=== PATIENT | female | born 1950 | race Caucasian/White ===

== ENCOUNTER 2019-09-12 16:59 | Emergency (ER) | payer MEDICARE, SELFPAY ==
[2019-09-12 17:12] VITALS: BP 160/71; PULSE 88; RESP 18; TEMP 38.3; O2SAT 96; BMI 31.0
--- NOTE | 2019-09-12 17:19 | W.ED.ABDPA2 ---
HPI - Abdominal Pain General: Chief Complaint: Abdominal Pain Stated Complaint: abd pain Time Seen by Provider: 09/12/19 17:19 History of Present Illness: HPI narrative: Patient is a 69-year-old female comes to the ED with abdominal pain. She has had this pain intermittently for a while now. In the last week the abdominal pain has been more constant and severe. She describes the location of the abdominal pain is in the right upper quadrant. She rates the pain about a 5 out of 10 currently, but whenever she eats or drinks anything it gets a lot more severe. She says she has had some diarrhea the past couple days, nausea and fever. Denies any vomiting. Associated Symptoms: Reports diarrhea, fever(s) and nausea; Denies chills, constipation, dysuria, hematochezia, hematuria and vomiting Review of Systems Const: Reports: fever(s); Denies: chills or fatigue Eyes: Denies: change in vision or eye discomfort ENMT: Denies: throat pain, odynophagia, nasal discharge or nasal congestion Card: Denies: chest pain, palpitations, edema, swelling of feet/ankles, dyspnea on exertion or orthopnea Resp: Denies: dyspnea, productive cough or non-productive cough GI: Reports: abdominal pain, nausea and diarrhea; Denies: vomiting, constipation or hematochezia : Denies: flank pain, dysuria or hematuria Musc: Denies: neck pain, back pain or extremity swelling Skin/Breast: Denies: rash or new lesions Neuro: Denies: headache(s), numbness in extremities or weakness in extremities PFS ED PFSH: Social History Smoking and tobacco status: never smoked Physical Exam Const: COMMON NORMALS: patient oriented x3 and alert GENERAL APPEARANCE: cooperative; not comfortable (Uncomfortable due to right upper quadrant pain.) HENMT: COMMON NORMALS: normocephalic HEAD & SCALP: normocephalic MOUTH: Normal oral and palatal mucosa present THROAT: posterior oropharynx normal and uvula midline Eye: COMMON NORMALS: Equal, round and reactive pupils present PUPIL: Yes Equal, round and reactive pupils present Neck/C-Spine: COMMON NORMALS: supple GENERAL: Yes normal visual inspection Resp: COMMON NORMALS: normal respiratory effort, No retractions, No use of accessory muscles and clear to auscultation bilaterally AUSCULTATION: clear to auscultation bilaterally Cardio: COMMON NORMALS: regular rate, regular rhythm, S1 normal heart sound present, S2 normal heart sound present, No gallops present (Cardio), No clicks present (Cardio), No murmurs present (Cardio) and Peripheral pulses 2+ throughout RATE: regular rate RHYTHM: regular rhythm HEART SOUNDS: S1 normal heart sound present and S2 normal heart sound present PERIPHERAL PULSES: Peripheral pulses 2+ throughout GI: COMMON NORMALS: Normal to inspection, nondistended, normoactive bowel sounds present, Soft to palpation and no masses AUSCULTATION: Yes normoactive bowel sounds PALPATION: Yes Soft to palpation and Yes Tenderness to palpation present (GI) Details: RUQ (Positive Arzate sign) : COMMON NORMALS: Yes no CVA tenderness BLADDER/KIDNEY EXAM: Yes no CVA tenderness Back/Pelvis: COMMON NORMALS: no CVA tenderness Extremity: COMMON NORMALS: normal to inspection and no pedal edema Neuro: COMMON NORMALS: patient oriented x3 SENSORIUM/ORIENTATION: Yes alert GAIT: Yes Normal gait present Skin: COMMON NORMALS: no rashes or lesions noted GENERAL SKIN EXAM: no rashes or lesions noted and dry skin Course Vital Signs: Vital signs: Vital Signs Temperature 100.9 F H 09/12/19 17:12 Pulse Rate 87 09/12/19 20:00 Respiratory Rate 17 09/12/19 20:00 Blood Pressure 154/79 09/12/19 20:00 Pulse Oximetry 96 09/12/19 20:00 MDM - Abdominal Pain MDM Narrative: Medical decision making narrative: Patient is a 69-year-old female comes to the ED with right upper quadrant pain. White blood cell 7.1. Ultrasound of the gallbladder showed Cholelithiasis without cholecystitis. No duct dilatation. Patient's pain and nausea was controlled here in the ED and she was feeling a lot better. Patient would like to discharge and go home and rest. I placed a referral to case management for patient to see general surgery. Patient was discharged with a prescription of Zofran and a written prescription of hydrocodone. Told her to advance her diet slowly and to start with clear liquids. She can return to the ED for reevaluation if she has any worsening symptoms. Patient understood and agreed with plan. Lab Data: Attestation: I reviewed the patient's lab results. Labs: Lab Results 09/12/19 09/12/19 09/12/19 Range/Units 17:32 17:32 18:30 WBC 7.1 (4.0-10.0) 10^3/ uL RBC 4.12 (4.1-5.3) 10^6/u L Hgb 11.3 L (11.5-15.3) g/dL Hct 36.9 L (37.0-47.0) % MCV 89.6 (81-99) fL MCH 27.4 L (28.0-34.0) pg MCHC 30.6 (30.0-36.0) g/dL RDW 13.2 (12.1-15.1) % Plt Count 303 (130-400) 10^3/c mm MPV 9.4 (7.4-10.4) fL Neut % (Auto) 78.6 % Lymph % (Auto) 9.9 % [place] % (Auto) 9.3 % Eos % (Auto) 1.4 % Baso % (Auto) 0.4 % Neut # (Auto) 5.6 (1.8-7.7) 10^3/u L Lymph # (Auto) 0.7 L (0.8-4.8) 10^3/u L [place] # (Auto) 0.7 (0.2-0.9) 10^3/u L Eos # (Auto) 0.1 (0.0-0.8) 10^3/u L Baso # (Auto) 0.0 (0.0-0.1) 10^3/u L Nucleated RBC % (a uto) 0 % Nucleated RBCs # 0.0 /100WBC Sodium 140 (136-145) mmol/L Potassium 4.3 (3.5-5.1) mmol/L Chloride 104 (98-107) mmol/L Carbon Dioxide 23 (22-29) mmol/L Anion Gap 17.3 (5-19) BUN 20 (8-23) mg/dL Creatinine 1.2 H (0.5-0.9) mg/dL GFR Calculation 44.5 L (90-130) mL/min Glucose 109 (65-115) mg/dL Calculated Osmolal ity 287 (285-295) mOsm/k g Calcium 9.1 (8.5-10.5) mg/dL Total Bilirubin 0.6 (0.15-1.2) mg/dL AST 20 (0-32) U/L ALT 14 (0-33) U/L Alkaline Phosphata se 132 H (35-105) IU/L Total Protein 8.0 (6.6-8.7) g/dL Albumin 3.3 L (3.5-5.2) g/dL Globulin 4.7 H (1.3-4.6) g/dL Lipase 50 (13-60) U/L Urine Color Yellow (Yellow) Urine Appearance Sl hazy (CLEAR) Urine pH 5 (5-7) Ur Specific Gravit y 1.015 (1.005-1.030) Urine Protein Neg (Negative) Urine Glucose (UA) Norm (Normal) Urine Ketones Negative (Negative) Urine Blood Neg (Negative) Urine Nitrate Negative (Negative) Urine Bilirubin Neg (NEGATIVE) Urine Urobilinogen 1 H (Negative) mg/dL Ur Leukocyte Chika ase Negative (Negative) Urine RBC None (0-2) /hpf Urine WBC 15-25 H (0-5) /hpf Ur Squamous Epith Cells 0-4 H (0-5) Urine Bacteria 4+ H (NONE) Urine Mucus 1+ Imaging Data ^: US: Attestation: I personally reviewed and interpreted this imaging study as follows: Radiologist's impression: [address] [address] Ultrasound Report Signed Patient: Erin Rodriguez Unit #: [id number] : [id number] Age/Sex: 69 / F ADM Date: 09/12/19 Loc: ER Room/Bed: Attending Dr: Ordering Provider/Ordering MD: Rey Sandoval Date of Service: 09/12/19 Procedure(s): US gall bladder 35056 Accession Number(s): [id number] Report Number: [id number] PROCEDURE INFORMATION: Exam: US Abdomen Limited, Right Upper Quadrant Exam date and time: 09/12/2019 5:22 PM Age: 69 years old Clinical indication: Abdominal pain; Additional info: Ruq abdominal pain TECHNIQUE: Imaging protocol: Real-time ultrasound of the abdomen with image documentation. Examination was focused on the right upper quadrant. COMPARISON: No relevant prior studies available. FINDINGS: Liver: The liver is mildly echogenic with attenuation of the ultrasound beam compatible with fatty infiltration. The liver measures 16.6 cm in length. Gallbladder: The gallbladder is distended. There is stones in the gallbladder. The gallbladder wall thickness is at the upper limits of normal at 2.9 mm. There is a positive sonographic Arzate's sign. There is no pericholecystic fluid. Note is made that there is a prominent vessel adjacent to the gallbladder. Common bile duct: The common bile duct is within normal limits at 3.5 mm. Pancreas: The visualized pancreas is unremarkable. Adrenals: There is an indeterminate nodule separate from but superior to the right kidney measuring 3.0 x 4.3 x 3.7 cm. This nodule has a hypoechoic rim and echogenic center which is typically identified with loops of bowel however it has a rounded appearance and cannot be connected with other loops of bowel on this exam. Specifically, this may be a loop of bowel or an incidental right adrenal nodule. Right kidney: The right kidney is unremarkable. There are no stones or hydronephrosis. The echotexture of the kidney is unremarkable. The kidney measures 11 cm in length. US/US gall bladder [id number] IMPRESSION: 1. Cholelithiasis without cholecystitis. No duct dilatation. 2. There is an indeterminate heterogeneous echogenicity nodule separate from but superior to the right kidney. This may be a loop of bowel or an incidental right adrenal nodule. CT scan may be helpful for further evaluation. Dictated By: Blank Terrell Signed By: Blank Terrell Signed Date/Time: 09/12/191824 DD/ 22 Discharge Plan Discharge Patient Disposition: Home, Self-Care Clinical Impression: Cholecystitis, Biliary colic Condition: Stable Prescriptions: New Zofran 4 mg tablet 4 mg PO DAILY Qty: 20 RF: 0 No Action trazodone 50 mg tablet 50 mg PO DAILY RF: 0 ropinirole 0.5 mg tablet 0.5 mg PO TID RF: 0 tramadol 50 mg tablet 50 mg PO BID PRN (Reason: paim) RF: 0 paroxetine HCl 20 mg tablet 20 mg PO DAILY RF: 0 atenolol 25 mg tablet 50 mg PO BID RF: 0 Discharge Orders: Discharge Order (Routine); Ordered 09/12/19 Ordered By: Rey Sandoval Referrals: Regino Smith MD [Primary Care Provider] - Discharge Diet: Advance as tolerated Discharge Activity: Increase activity as tolerated Patient Instructions: Cholecystitis (ED), Biliary Colic (ED) Activity Restrictions/Additional Instructions: I placed a referral to general surgery for you. They should be contacting you in the next several days to set up an appointment. You can give [facility] general surgery a call on Friday as well to touch base with them. Take the Zofran as needed for any nausea. I am also giving you a written prescription for [place] which she can take as prescribed for pain. Start slow with your diet and only drink clear liquids at first and then advance as tolerated. You can always come back to the ED for reevaluation if symptoms worsen. Discharge Date/Time: 09/12/19 20:01 Coding Level of Care Code ED [facility] for [facility] Fwd Exam Comprehensive
[2019-09-12] MEDS: sodium chloride 0.9% 500 ML IV (17:40)
[2019-09-12] MEDS: ondansetron 2 mg/ML SDV 2 mL 4 MG IVP ×2 (17:40→19:53)
[2019-09-12 17:45] VITALS: RESP 18
[2019-09-12] MEDS: morphine 4 mg/mL SDV 1 mL IVP (17:45)
[2019-09-12 17:51] LABS: Basophils % 0.4 %; Eosinophils # 0.1 10^3/uL (0.0-0.8); Eosinophils % 1.4 %; Hematocrit 36.9 % (37.0-47.0); Hemoglobin 11.3 g/dL (11.5-15.3); Lymphocytes # 0.7 10^3/uL (0.8-4.8); Lymphocytes % 9.9 %; Mean Corpuscular HGB Conc 30.6 g/dL (30.0-36.0); Mean Corpuscular Hemoglobin 27.4 pg (28.0-34.0); Mean Corpuscular Volume 89.6 fL (81-99); Mean Platelet Volume 9.4 fL (7.4-10.4); Monocytes # 0.7 10^3/uL (0.2-0.9); Monocytes % 9.3 %; Neutrophils # 5.6 10^3/uL (1.8-7.7); Neutrophils % 78.6 %; Nucleated Red Blood Cells % 0 %; Platelet Count 303 10^3/cmm (130-400); Red Blood Count 4.12 10^6/uL (4.1-5.3); Red Cell Distribution Width 13.2 % (12.1-15.1); White Blood Count 7.1 10^3/uL (4.0-10.0)
[2019-09-12 18:08] LABS: Alanine Aminotransferase 14 U/L (0-33); Albumin Level 3.3 g/dL (3.5-5.2); Alkaline Phosphatase 132 IU/L (35-105); Anion Gap 17.3 (5-19); Aspartate Amino Transferase 20 U/L (0-32); Blood Urea Nitrogen 20 mg/dL (8-23); Calcium 9.1 mg/dL (8.5-10.5); Carbon Dioxide 23 mmol/L (22-29); Chloride 104 mmol/L (98-107); Globulin 4.7 g/dL (1.3-4.6); Glomerular Filtration Rate 44.5 mL/min (90-130); Glucose 109 mg/dL (65-115); Lipase 50 U/L (13-60); Osmolality Calculated 287 mOsm/kg (285-295); Potassium 4.3 mmol/L (3.5-5.1); Sodium 140 mmol/L (136-145); Total Bilirubin 0.6 mg/dL (0.15-1.2)
[2019-09-12 18:56] LABS: Bilirubin Urine Neg (NEGATIVE); Blood Urine Neg (Negative); Glucose Urine UA Norm (Normal); Ketones Urine Negative (Negative); Leukocyte Esterase Urine Negative (Negative); Nitrate Urine Negative (Negative); Protein Urine Neg (Negative); Specific Gravity, Urine 1.015 (1.005-1.030); Urine Color Yellow (Yellow); Urobilinogen Urine 1 mg/dL (Negative); pH Urine 5 (5-7)
[2019-09-12 18:57] LABS: Add Urine Microscopic? YES; Urine Appearance SL Hazy (CLEAR)
[2019-09-12 18:58] LABS: Bacteria Urine 4+; Mucus Urine 1+; Squamous Epithelial Cell Urine 0-4 (0-5); WBC Urine 15-25 /hpf (0-5)
[2019-09-12 19:00] LABS: Add Urine Culture? Yes
[2019-09-12 19:11] VITALS: BP 155/86; PULSE 81; RESP 18; O2SAT 94
[2019-09-12] MEDS: HYDROcodone-acetaminophen 7.5-325 mg Tablet 1 TAB PO (19:52)
[2019-09-12 20:00] VITALS: BP 154/79; PULSE 87; RESP 17; O2SAT 96
--- NOTE | 2019-09-13 14:55 | DCPLANNER ---
thoroughbred horse farm manager had message to schedule a follow up appointment for patient with general surgery. thoroughbred horse farm manager called the [facility], spoke with Mery, gave clinic patients information. thoroughbred horse farm manager was told that patients information would be printed and reviewed. Clinic will call patient with appointment information.
--- NOTE | 2019-09-16 13:46 | DCPLANNER ---
Patient has a follow up appointment scheduled for , September 23, [address] at 9:[address] Mchugh. Clinic will call patient with appointment information.
--- NOTE | 2019-09-23 11:23 | DCPLANNER ---
Appointment scheduled for 09.23.19 with [facility] was cancelled.
== END 2019-09-12 20:01 | disposition home or self-care (01) ==
PROVIDERS: Emergency Provider Physician Assistant; PCP Family Medicine
DX: K81.9 Cholecystitis, unspecified (principal)
CPT/HCPCS: 12345; 76705; 80053; 81000; 81001; 83690; 85025; 87040; 87077; 87086; 87186; 96361; 96374; 96375; 96376; 99283; J2270; J2405; J7040

== ENCOUNTER 2019-09-17 13:30 | Inpatient (IN) | payer MEDICARE, SELFPAY ==
[2019-09-17] VITALS (12 sets, daily range): BP systolic 108–134; BP diastolic 50–82; PULSE 88–111; RESP 14–23; TEMP 36.9–37.6; O2SAT 88–98; BMI 32.5
--- NOTE | 2019-09-17 15:35 | USR_ITS ---
PROCEDURE INFORMATION: Exam: US Abdomen, Limited; Right Upper Quadrant Exam date and time: 09/17/2019 5:01 PM Age: 69 years old Clinical indication: Abdominal pain; Acute TECHNIQUE: Imaging protocol: US abdomen. Real time ultrasound with image documentation. Limited exam focused on the right upper quadrant. COMPARISON: US gall bladder [id number] 09/12/2019 5:35 PM FINDINGS: Liver: Normal. No masses. 15.6 cm Gallbladder: Multiple gallstones. There is no gallbladder wall thickening. Gallbladder measures 10.4 cm Common bile duct: Normal. No stones. No dilation. 8.2 mm Pancreas: Visualized pancreas is unremarkable. Right kidney: Normal. No mass. No hydronephrosis. 10.3 cm x 3 cm x 3.8 cm US/US gall bladder [id number] IMPRESSION: Dilated gallbladder with multiple gallstones Otherwise negative examination
--- NOTE | 2019-09-17 15:50 | W.ED.ABDPA2 ---
Documented by User: Betzaida Corrigan 09/17/19 15:58 HPI - Abdominal Pain General: Chief Complaint: Abdominal Pain Stated Complaint: abd pain Time Seen by Provider: 09/17/19 15:32 Source: patient and family Mode of arrival: ambulatory Limitations: no limitations History of Present Illness: HPI narrative: Erin is a nice 69-year-old female who comes in complaining of intermittent upper abdominal pain. The pain is always brought on by eating. She has significant nausea but has not vomited. The patient has had a subjective fever but is never measured her temperature. There are no urinary symptoms, vaginal discharge or bleeding. She has not had any chest pain or shortness of breath. Associated Symptoms: Reports nausea; Denies chills, coffee ground emesis, constipation, GI cramping, diarrhea, dysuria, fever(s), heartburn, hematochezia, hematuria, hematemesis, melena, syncope and vomiting Review of Systems Const: Denies: fever(s), chills, body aches, fatigue, malaise or diaphoresis Eyes: Denies: change in vision, blurry vision, blind spots, photophobia, eye discharge or eye redness ENMT: Denies: throat pain, odynophagia, hoarseness, swelling of lips/tongue, oral sores, ear or mastoid pain, ear discharge, change in hearing or nasal discharge Card: Denies: chest pain, palpitations, irregular heart rhythm, edema, lightheadedness, syncope, pre-syncope, dyspnea on exertion or orthopnea Resp: Denies: dyspnea, productive cough, non-productive cough, wheezing, hemoptysis or chest congestion GI: Reports: abdominal pain and nausea; Denies: vomiting, hematemesis, coffee ground emesis, heartburn, diarrhea, constipation, GI cramping, hematochezia or melena : Denies: flank pain, dysuria, urinary frequency, urinary urgency or hematuria Musc: Denies: neck pain, back pain, extremity pain, extremity swelling, joint pain, joint swelling, joint redness, joint warmth or joint stiffness Skin/Breast: Denies: rash, pruritus, erythema, skin tenderness or jaundice Neuro: Denies: headache(s), numbness in extremities, weakness in extremities, sensory changes, lack of coordination, difficulty walking, dizziness, vertigo, confusion, Slurred speech present or seizure-like activity Júnior/Lymph: Denies: easy bruising, easy bleeding, petechiae, purpura or enlarged lymph nodes All/Imm: Denies: urticaria, throat swelling, tongue swelling, facial swelling or acute wheezing PFSH ED PFSH: Medical History (Updated 09/17/19 @ 22:34 by Olivia Solorio MD, [facility] Depression Hypertension Social History Smoking and tobacco status: never smoked Physical Exam Const: COMMON NORMALS: no acute distress, patient oriented x3, no limitations, healthy appearing and well nourished GENERAL APPEARANCE: cooperative, well kempt and well developed HENMT: COMMON NORMALS: normocephalic, atraumatic, external ears normal, EAC's normal and Normal external nose present HEAD & SCALP: normal to inspection, normocephalic and atraumatic FACE & SINUS: normal facial exam and face symmetric NOSE: Normal external nose present and Normal nares present EXTERNAL EAR: Yes external ears normal EXTERNAL AUDITORY CANAL: EAC's normal MOUTH: Normal oral and palatal mucosa present, lip normal and tongue normal Eye: COMMON NORMALS: Equal, round and reactive pupils present and conjunctivae normal GENERAL EYE: appearance normal, both eyes and all related structures ALIGNMENT: Yes alignment normal PERIORBITAL: periorbital findings normal EYELID: eyelids normal CONJUNCTIVA: Yes conjunctivae normal SCLERA: sclerae normal PUPIL: Yes Equal, round and reactive pupils present Neck/C-Spine: COMMON NORMALS: full ROM, no lymphadenopathy, supple, no meningeal signs and no JVD GENERAL: Yes normal visual inspection and Yes trachea midline Chest: COMMONS NORMALS: normal inspection of the chest and normal palpation of entire chest wall Resp: COMMON NORMALS: normal respiratory effort, No retractions and No use of accessory muscles EFFORT & INSPECTION: Yes able to speak in complete sentences and Yes symmetric chest movement AUSCULTATION: no crackles, no rales, no rhonchi and no wheezes Cardio: COMMON NORMALS: no JVD, regular rate, regular rhythm, S1 normal heart sound present and S2 normal heart sound present RATE: regular rate RHYTHM: regular rhythm HEART SOUNDS: S1 normal heart sound present, S2 normal heart sound present, no click, no gallops, no murmurs, no rubs and abnormal split S2 GI: COMMON NORMALS: Soft to palpation and No hepatosplenomegaly present PALPATION: Yes Soft to palpation, Yes Tenderness to palpation present (GI) (Moderate in bilateral upper quadrants.), No Guarding due to palpation present (GI), No Rigid due to palpation, Yes No hepatosplenomegaly present, No Hernia present, No Palpable mass present and No Pulsatile mass present : COMMON NORMALS: Yes no CVA tenderness BLADDER/KIDNEY EXAM: Yes no CVA tenderness EXTERNAL FEMALE EXAM: No Hernia present Back/Pelvis: COMMON NORMALS: no CVA tenderness, thoracic and lumbar spine normal to inspection, no thoracic nor lumbar tenderness and thoraco-lumbar ROM normal Extremity: COMMON NORMALS: normal to inspection, full ROM, capillary refill normal, no joint enlargement, no clubbing, cyanosis or edema and no calf tenderness Neuro: COMMON NORMALS: patient oriented x3, CN's II-XII intact bilaterally, moves all extremities, no focal motor deficits and no sensory deficits noted MENINGEAL SIGNS: Yes no meningeal signs SPEECH: speech normal Psych: COMMON NORMALS: mental status grossly normal, Normal thought process present, cooperative, normal affect, speech normal and activity/motor behavior normal APPEARANCE: Yes well kempt SPEECH: Yes normal speech THOUGHT PROCESS: Normal thought process present Skin: COMMON NORMALS: no rashes or lesions noted, turgor normal, no jaundice, no petechiae and no mottling GENERAL SKIN EXAM: no rashes or lesions noted and turgor normal Course Vital Signs: Vital signs: Vital Signs Temperature 99.1 F 09/17/19 20:00 Pulse Rate 104 H 09/17/19 22:02 Respiratory Rate 21 H 09/17/19 20:27 Blood Pressure 108/50 09/17/19 20:27 Pulse Oximetry 88 L 09/17/19 22:02 MDM - Abdominal Pain Lab Data: Labs: Lab Results 09/17/19 09/17/19 09/17/19 Range/Units 16:14 16:14 16:14 WBC 15.2 H (4.0-10.0) 10^3/ uL RBC 4.19 (4.1-5.3) 10^6/u L Hgb 11.5 (11.5-15.3) g/dL Hct 37.8 (37.0-47.0) % MCV 90.2 (81-99) fL MCH 27.4 L (28.0-34.0) pg MCHC 30.4 (30.0-36.0) g/dL RDW 13.4 (12.1-15.1) % Plt Count 410 H (130-400) 10^3/c mm MPV 9.3 (7.4-10.4) fL Neut % (Auto) 90.8 % Lymph % (Auto) 3.1 % [place] % (Auto) 5.2 % Eos % (Auto) 0.1 % Baso % (Auto) 0.3 % Neut # (Auto) 13.8 H (1.8-7.7) 10^3/u L Lymph # (Auto) 0.5 L (0.8-4.8) 10^3/u L [place] # (Auto) 0.8 (0.2-0.9) 10^3/u L Eos # (Auto) 0.0 (0.0-0.8) 10^3/u L Baso # (Auto) 0.0 (0.0-0.1) 10^3/u L Nucleated RBC % (a uto) 0 % Nucleated RBCs # 0.0 /100WBC Sodium 135 L (136-145) mmol/L Potassium 3.8 (3.5-5.1) mmol/L Chloride 96 L (98-107) mmol/L Carbon Dioxide 19 L (22-29) mmol/L Anion Gap 23.8 H (5-19) BUN 23 (8-23) mg/dL Creatinine 0.2 L (0.5-0.9) mg/dL GFR Calculation 352.2 H (90-130) mL/min Glucose 116 H (65-115) mg/dL Calculated Osmolal ity 278 L (285-295) mOsm/k g Lactic Acid 1.7 (0.5-2.2) mmol/L Calcium 9.5 (8.5-10.5) mg/dL Total Bilirubin 0.2 (0.15-1.2) mg/dL AST 5 (0-32) U/L ALT < 5 (0-33) U/L Alkaline Phosphata se 5 L (35-105) IU/L Troponin T Baselin e (0-10) ng/L Troponin T 120 Min [place] band (0-10) ng/L Delta Troponin T (0-10) ABS# Total Protein 0.2 L (6.6-8.7) g/dL Albumin 0.2 L (3.5-5.2) g/dL Globulin 0.0 L (1.3-4.6) g/dL Lipase 3 L (13-60) U/L Urine Color (Yellow) Urine Appearance (CLEAR) Urine pH (5-7) Ur Specific Gravit y (1.005-1.030) Urine Protein (Negative) Urine Glucose (UA) (Normal) Urine Ketones (Negative) Urine Blood (Negative) Urine Nitrate (Negative) Urine Bilirubin (NEGATIVE) Urine Urobilinogen (Negative) mg/dL Ur Leukocyte Chika ase (Negative) Urine RBC (0-2) /hpf Urine WBC (0-5) /hpf Ur Squamous Epith Cells (0-5) Amorphous Sediment Urine Bacteria (NONE) 09/17/19 09/17/19 09/17/19 Range/Units 16:14 18:18 18:19 WBC (4.0-10.0) 10^3/ uL RBC (4.1-5.3) 10^6/u L Hgb (11.5-15.3) g/dL Hct (37.0-47.0) % MCV (81-99) fL MCH (28.0-34.0) pg MCHC (30.0-36.0) g/dL RDW (12.1-15.1) % Plt Count (130-400) 10^3/c mm MPV (7.4-10.4) fL Neut % (Auto) % Lymph % (Auto) % [place] % (Auto) % Eos % (Auto) % Baso % (Auto) % Neut # (Auto) (1.8-7.7) 10^3/u L Lymph # (Auto) (0.8-4.8) 10^3/u L [place] # (Auto) (0.2-0.9) 10^3/u L Eos # (Auto) (0.0-0.8) 10^3/u L Baso # (Auto) (0.0-0.1) 10^3/u L Nucleated RBC % (a uto) % Nucleated RBCs # /100WBC Sodium (136-145) mmol/L Potassium (3.5-5.1) mmol/L Chloride (98-107) mmol/L Carbon Dioxide (22-29) mmol/L Anion Gap (5-19) BUN (8-23) mg/dL Creatinine (0.5-0.9) mg/dL GFR Calculation (90-130) mL/min Glucose (65-115) mg/dL Calculated Osmolal ity (285-295) mOsm/k g Lactic Acid (0.5-2.2) mmol/L Calcium (8.5-10.5) mg/dL Total Bilirubin (0.15-1.2) mg/dL AST (0-32) U/L ALT (0-33) U/L Alkaline Phosphata se (35-105) IU/L Troponin T Baselin e 11 H (0-10) ng/L Troponin T 120 Min [place] band 8.98 (0-10) ng/L Delta Troponin T -2.02 L (0-10) ABS# Total Protein (6.6-8.7) g/dL Albumin (3.5-5.2) g/dL Globulin (1.3-4.6) g/dL Lipase (13-60) U/L Urine Color Yellow (Yellow) Urine Appearance Sl cloudy A (CLEAR) Urine pH 5 (5-7) Ur Specific Gravit y 1.025 (1.005-1.030) Urine Protein 1+ H (Negative) Urine Glucose (UA) Norm (Normal) Urine Ketones Negative (Negative) Urine Blood Neg (Negative) Urine Nitrate Negative (Negative) Urine Bilirubin 1+ H (NEGATIVE) Urine Urobilinogen 8 H (Negative) mg/dL Ur Leukocyte Chika ase 2+ H (Negative) Urine RBC None (0-2) /hpf Urine WBC 55-80 H (0-5) /hpf Ur Squamous Epith Cells 5-10 H (0-5) Amorphous Sediment 2+ Urine Bacteria 3+ H (NONE) Discharge Plan Discharge Patient Disposition: Admitted As Inpatient Admit Provider: Sebastian Spencer Clinical Impression: Cholecystitis, Hypertension Condition: Stable Interventions: ED Discharge Assessment Last Done: 09/17/19 20:27 ED Charges Last Done: 09/17/19 20:30 Discharge Date/Time: 09/17/19 20:34 Sign Out Sign Out Data: Patient Sign Out occurred on 09/17/19 at 17:14. Patient's care was discussed, and care was transferred from to Olivia Solorio MD, [facility]. Coding Level of Care Code ED Informaticist for Chg Fwd Exam Comprehensive Documented by User: Olivia Solorio MD, MSM 09/17/19 22:34 HPI - Abdominal Pain General: Chief Complaint: Abdominal Pain Stated Complaint: abd pain Time Seen by Provider: 09/17/19 15:32 [facility] ED PFSH: Medical History (Updated 09/17/19 @ 22:34 by Olivia Solorio MD, [facility]) Depression Hypertension Social History Smoking and tobacco status: never smoked Course Reevaluation(s): Reevaluation #1: Discussed her lab and imaging findings with her. Symptoms consistent with acute cholecystitis. We will advise hospital admission and surgical removal of the gallbladder after evaluation by the surgeon. The patient and her daughter voiced understanding and they are in agreement with the plan. Consultations: Consultation #1: Dr. Spencer, surgeon. He kindly accepted patient to his service. Time: 18:40 Vital Signs: Vital signs: Vital Signs Temperature 99.1 F 09/17/19 20:00 Pulse Rate 104 H 09/17/19 22:02 Respiratory Rate 21 H 09/17/19 20:27 Blood Pressure 108/50 09/17/19 20:27 Pulse Oximetry 88 L 09/17/19 22:02 MDM - Abdominal Pain MDM Narrative: Medical decision making narrative: 69-year-old female patient who this is her second visit to the ED for the same upper abdominal pain. Evaluation in the ED is consistent with acute cholecystitis and she is admitted to the general surgeon for further evaluation. See Dr. Trejo's note for history and physical examination. Lab Data: Labs: Lab Results 09/17/19 09/17/19 09/17/19 Range/Units 16:14 16:14 16:14 WBC 15.2 H (4.0-10.0) 10^3/ uL RBC 4.19 (4.1-5.3) 10^6/u L Hgb 11.5 (11.5-15.3) g/dL Hct 37.8 (37.0-47.0) % MCV 90.2 (81-99) fL MCH 27.4 L (28.0-34.0) pg MCHC 30.4 (30.0-36.0) g/dL RDW 13.4 (12.1-15.1) % Plt Count 410 H (130-400) 10^3/c mm MPV 9.3 (7.4-10.4) fL Neut % (Auto) 90.8 % Lymph % (Auto) 3.1 % [place] % (Auto) 5.2 % Eos % (Auto) 0.1 % Baso % (Auto) 0.3 % Neut # (Auto) 13.8 H (1.8-7.7) 10^3/u L Lymph # (Auto) 0.5 L (0.8-4.8) 10^3/u L [place] # (Auto) 0.8 (0.2-0.9) 10^3/u L Eos # (Auto) 0.0 (0.0-0.8) 10^3/u L Baso # (Auto) 0.0 (0.0-0.1) 10^3/u L Nucleated RBC % (a uto) 0 % Nucleated RBCs # 0.0 /100WBC Sodium 135 L (136-145) mmol/L Potassium 3.8 (3.5-5.1) mmol/L Chloride 96 L (98-107) mmol/L Carbon Dioxide 19 L (22-29) mmol/L Anion Gap 23.8 H (5-19) BUN 23 (8-23) mg/dL Creatinine 0.2 L (0.5-0.9) mg/dL GFR Calculation 352.2 H (90-130) mL/min Glucose 116 H (65-115) mg/dL Calculated Osmolal ity 278 L (285-295) mOsm/k g Lactic Acid 1.7 (0.5-2.2) mmol/L Calcium 9.5 (8.5-10.5) mg/dL Total Bilirubin 0.2 (0.15-1.2) mg/dL AST 5 (0-32) U/L ALT < 5 (0-33) U/L Alkaline Phosphata se 5 L (35-105) IU/L Troponin T Baselin e (0-10) ng/L Troponin T 120 Min [place] band (0-10) ng/L Delta Troponin T (0-10) ABS# Total Protein 0.2 L (6.6-8.7) g/dL Albumin 0.2 L (3.5-5.2) g/dL Globulin 0.0 L (1.3-4.6) g/dL Lipase 3 L (13-60) U/L Urine Color (Yellow) Urine Appearance (CLEAR) Urine pH (5-7) Ur Specific Gravit y (1.005-1.030) Urine Protein (Negative) Urine Glucose (UA) (Normal) Urine Ketones (Negative) Urine Blood (Negative) Urine Nitrate (Negative) Urine Bilirubin (NEGATIVE) Urine Urobilinogen (Negative) mg/dL Ur Leukocyte Chika ase (Negative) Urine RBC (0-2) /hpf Urine WBC (0-5) /hpf Ur Squamous Epith Cells (0-5) Amorphous Sediment Urine Bacteria (NONE) 09/17/19 09/17/19 09/17/19 Range/Units 16:14 18:18 18:19 WBC (4.0-10.0) 10^3/ uL RBC (4.1-5.3) 10^6/u L Hgb (11.5-15.3) g/dL Hct (37.0-47.0) % MCV (81-99) fL MCH (28.0-34.0) pg MCHC (30.0-36.0) g/dL RDW (12.1-15.1) % Plt Count (130-400) 10^3/c mm MPV (7.4-10.4) fL Neut % (Auto) % Lymph % (Auto) % [place] % (Auto) % Eos % (Auto) % Baso % (Auto) % Neut # (Auto) (1.8-7.7) 10^3/u L Lymph # (Auto) (0.8-4.8) 10^3/u L [place] # (Auto) (0.2-0.9) 10^3/u L Eos # (Auto) (0.0-0.8) 10^3/u L Baso # (Auto) (0.0-0.1) 10^3/u L Nucleated RBC % (a uto) % Nucleated RBCs # /100WBC Sodium (136-145) mmol/L Potassium (3.5-5.1) mmol/L Chloride (98-107) mmol/L Carbon Dioxide (22-29) mmol/L Anion Gap (5-19) BUN (8-23) mg/dL Creatinine (0.5-0.9) mg/dL GFR Calculation (90-130) mL/min Glucose (65-115) mg/dL Calculated Osmolal ity (285-295) mOsm/k g Lactic Acid (0.5-2.2) mmol/L Calcium (8.5-10.5) mg/dL Total Bilirubin (0.15-1.2) mg/dL AST (0-32) U/L ALT (0-33) U/L Alkaline Phosphata se (35-105) IU/L Troponin T Baselin e 11 H (0-10) ng/L Troponin T 120 Min [place] band 8.98 (0-10) ng/L Delta Troponin T -2.02 L (0-10) ABS# Total Protein (6.6-8.7) g/dL Albumin (3.5-5.2) g/dL Globulin (1.3-4.6) g/dL Lipase (13-60) U/L Urine Color Yellow (Yellow) Urine Appearance Sl cloudy A (CLEAR) Urine pH 5 (5-7) Ur Specific Gravit y 1.025 (1.005-1.030) Urine Protein 1+ H (Negative) Urine Glucose (UA) Norm (Normal) Urine Ketones Negative (Negative) Urine Blood Neg (Negative) Urine Nitrate Negative (Negative) Urine Bilirubin 1+ H (NEGATIVE) Urine Urobilinogen 8 H (Negative) mg/dL Ur Leukocyte Chika ase 2+ H (Negative) Urine RBC None (0-2) /hpf Urine WBC 55-80 H (0-5) /hpf Ur Squamous Epith Cells 5-10 H (0-5) Amorphous Sediment 2+ Urine Bacteria 3+ H (NONE) Imaging Data ^: US: Radiologist's impression: [facility] [address] [place] [address] Ultrasound Report Signed Patient: Erin Rodriguez #: [id number] : 1950Acct#:[id number] Age/Sex: 69 / FADM Date: 09/17/19 Loc: ERRoom/Bed: Attending Dr: Ordering Provider/Ordering MD: Betzaida Corrigan DO Date of Service: 09/17/19 Procedure(s): US gall bladder [id number] Accession Number(s): [id number] Report Number: [id number] PROCEDURE INFORMATION: Exam: US Abdomen, Limited; Right Upper Quadrant Exam date and time: 09/17/2019 5:01 PM Age: 69 years old Clinical indication: Abdominal pain; Acute TECHNIQUE: Imaging protocol: US abdomen. Real time ultrasound with image documentation. Limited exam focused on the right upper quadrant. COMPARISON: US gall bladder [id number] 09/12/2019 5:35 PM FINDINGS: Liver: Normal. No masses. 15.6 cm Gallbladder: Multiple gallstones. There is no gallbladder wall thickening. Gallbladder measures 10.4 cm Common bile duct: Normal. No stones. No dilation. 8.2 mm Pancreas: Visualized pancreas is unremarkable. Right kidney: Normal. No mass. No hydronephrosis. 10.3 cm x 3 cm x 3.8 cm US/US gall bladder [id number] IMPRESSION: Dilated gallbladder with multiple gallstones Otherwise negative examination Dictated By:Melquiades Soto Signed By:Rachel Soto Date/Time:09/17/191723 DD/ 1722 CT Abd/Pel: Radiologist's impression: [facility] [address] [place] [address] CT Scan Report Signed Patient: Erin Rodriguez #: [id number] : 1950Acct#:[id number] Age/Sex: 69 / FADM Date: 09/17/19 Loc: ERRoom/Bed: Attending Dr: Ordering Provider/Ordering MD: Olivia Solorio MD, [facility] Date of Service: 09/17/19 Procedure(s): CT abdomen pelvis w con* [id number] Accession Number(s): [id number] Report Number: [id number] PROCEDURE INFORMATION: Exam: CT Abdomen And Pelvis With Contrast Exam date and time: 09/17/2019 6:36 PM Age: 69 years old Clinical indication: Abdominal pain; Localized; Right upper quadrant (ruq); Prior surgery; Surgery date: 6+ months; Surgery type: Hyst; Patient HX: C/O ruq pain w HX of gallstones TECHNIQUE: Imaging protocol: Computed tomography of the abdomen and pelvis with intravenous contrast. Axial, coronal and sagittal reformatted images were created and reviewed. Radiation optimization: All CT scans at this facility use at least one of these dose optimization techniques: automated exposure control; mA and/or kV adjustment per patient size (includes targeted exams where dose is matched to clinical indication); or iterative reconstruction. Contrast material: OMNI 300; Contrast volume: 95 ml; Contrast route: INTRAVENOUS (IV); COMPARISON: US gall bladder [id number] 09/17/2019 4:24 PM RADIATION DOSE METRICS: Total DLP (mGy-cm): 1314.06 FINDINGS: Lungs: Mild linear stranding and groundglass at the lung bases, likely due to atelectasis and/or scarring. Mediastinal space: Small hiatal hernia. Liver: Mild intra hepatic biliary ductal dilatation. Gallbladder and bile ducts: Cholelithiasis and mild gallbladder distention with prominent associated gallbladder wall thickening, mural irregularity and pericholecystic stranding. Trace loculated pericholecystic fluid. Pancreas: Unremarkable. Spleen: Unremarkable. Adrenals: 3.8 x 3.1 cm ovoid right adrenal mass containing macroscopic fat, compatible with a myelolipoma (no follow-up is indicated based on the imaging appearance). Kidneys and ureters: Subcentimeter low-density renal lesions bilaterally, measuring up to 6 mm, too small to characterize. No radiodense calculi. No hydronephrosis. Stomach and bowel: Colonic diverticulosis without evidence of diverticulitis. No obstruction. No bowel wall thickening. No pneumatosis. Appendix: Normal. Intraperitoneal space: No free fluid. No organized fluid collection. No free air. Vasculature: Mild atherosclerotic disease. No aneurysm or dissection. Lymph nodes: No pathologically enlarged lymph nodes. Bladder: Decompressed urinary bladder. Reproductive: Unremarkable. Bones/joints: No acute osseous abnormality. Osteopenia. Mild degenerative changes. Soft tissues: Unremarkable. CT/CT abdomen pelvis w con* [id number] IMPRESSION: 1. Findings compatible with acute cholecystitis. Localized gallbladder perforation cannot be excluded. 2. Additional findings, as above. COMMENTS: Consistent with the [employer]'s Incidental Findings Committee white paper (J Am Alisia Radiol 2018): Any incidental renal lesion less than 1.0 cm or classified as too small to characterize, or any incidental cystic renal lesion characterized as simple-appearing, is likely benign. No follow-up imaging is recommended for these lesions per consensus recommendations based on imaging criteria. Radiation Dose CTDIVOL = (mGy): DLP = 1314.06 (mGy-cm) Dictated By:Tucker Brandt MD Signed By:Tucker Brandt MDSigned Date/Time:09/17/191905 DD/ 03 EKG Data ^: EKG 1: Attestation: I personally reviewed and interpreted this EKG as follows: EKG interpretation date: 09/17/19 EKG interpretation time: 17:23 Prior EKG tracings: not available for review Interpretation: Sinus rhythm with sinus arrhythmia. Heart rate 90 bpm. Left axis deviation. No ST changes. EKG 2: Attestation: I personally reviewed and interpreted this EKG as follows: EKG interpretation date: 09/17/19 EKG interpretation time: 19:04 Prior EKG tracings: available for review Interpretation: Sinus tachycardia. Heart rate 1 1 1 bpm. Left axis deviation. No ST changes. Discharge Plan Discharge Patient Disposition: Admitted As Inpatient Admit Provider: Sebastian Spencer Clinical Impression: Cholecystitis, Hypertension Condition: Stable Interventions: ED Discharge Assessment Last Done: 09/17/19 20:27 ED Charges Last Done: 09/17/19 20:30 Discharge Date/Time: 09/17/19 20:34 Sign Out Sign Out Data: Patient Sign Out occurred on 09/17/19 at 17:14. Patient's care was discussed, and care was transferred from to Olviia Solorio MD, [facility]. Coding Level of Care Code ED Informaticist for Chg Fwd Exam Comprehensive
--- NOTE | 2019-09-17 15:55 | ECG_ITS ---
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 Measurements Intervals [place] Rate: 90 P: 33 [place]: 193 QRS: -24 QRSD: 92 T: 42 QT: 376 QTc: 461 Interpretive Statements SINUS RHYTHM WITH SINUS ARRHYTHMIA BORDERLINE LEFT AXIS DEVIATION [QRS AXIS < -20] MODERATE VOLTAGE CRITERIA FOR LVH, CONSIDER NORMAL VARIANT [MEETS CRITERIA IN ONE OF: R(aVL), S(V1), R(V5), R(V5/V6)+S(V1)] No previous ECG available for comparison Electronically Signed On 09-17-2019 21:51:36 CDT by Mahad Walter M.D. [id number]
[2019-09-17 16:18] LABS: Basophils % 0.3 %; Eosinophils % 0.1 %; Hematocrit 37.8 % (37.0-47.0); Hemoglobin 11.5 g/dL (11.5-15.3); Lymphocytes # 0.5 10^3/uL (0.8-4.8); Lymphocytes % 3.1 %; Mean Corpuscular HGB Conc 30.4 g/dL (30.0-36.0); Mean Corpuscular Hemoglobin 27.4 pg (28.0-34.0); Mean Corpuscular Volume 90.2 fL (81-99); Mean Platelet Volume 9.3 fL (7.4-10.4); Monocytes # 0.8 10^3/uL (0.2-0.9); Monocytes % 5.2 %; Neutrophils # 13.8 10^3/uL (1.8-7.7); Neutrophils % 90.8 %; Nucleated Red Blood Cells % 0 %; Platelet Count 410 10^3/cmm (130-400); Red Blood Count 4.19 10^6/uL (4.1-5.3); Red Cell Distribution Width 13.4 % (12.1-15.1); White Blood Count 15.2 10^3/uL (4.0-10.0)
[2019-09-17] MEDS: sodium chloride 0.9% 1,000 ML 999 ML IV (16:23)
[2019-09-17] MEDS: ondansetron 2 mg/ML SDV 2 mL 4 MG IVP (16:25)
[2019-09-17] MEDS: HYDROmorphone 1 mg/mL INJ 1 mL IVP ×2 (16:28→19:52)
[2019-09-17 16:46] LABS: Lactic Sepsis W/Reflex 1.7 mmol/L (0.5-2.2); Troponin(5th) Baseline 11 ng/L (0-10)
--- NOTE | 2019-09-17 17:55 | ECG_ITS ---
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 Measurements Intervals [place] Rate: 111 P: 33 GA: 200 QRS: -26 QRSD: 85 T: 40 QT: 322 QTc: 438 Interpretive Statements SINUS TACHYCARDIA BORDERLINE LEFT AXIS DEVIATION [QRS AXIS < -20] MODERATE VOLTAGE CRITERIA FOR LVH, CONSIDER NORMAL VARIANT [MEETS CRITERIA IN ONE OF: R(aVL), S(V1), R(V5), R(V5/V6)+S(V1)] MINIMAL ST DEPRESSION [0.025+ mV ST DEPRESSION] ABNORMAL RHYTHM ECG Compared to ECG 09/17/2019 17:23:28 ST (T wave) deviation now present Sinus rhythm no longer present Sinus arrhythmia no longer present Electronically Signed On 09-17-2019 21:53:13 CDT by Mahad Walter M.D. [id number]
[2019-09-17 18:25] LABS: Alanine Aminotransferase < 5 U/L (0-33); Albumin Level 0.2 g/dL (3.5-5.2); Alkaline Phosphatase 5 IU/L (35-105); Aspartate Amino Transferase 5 U/L (0-32); Glomerular Filtration Rate 352.2 mL/min (90-130); Lipase 3 U/L (13-60); Total Bilirubin 0.2 mg/dL (0.15-1.2); Total Protein 0.2 g/dL (6.6-8.7)
--- NOTE | 2019-09-17 18:25 | CTR_ITS ---
PROCEDURE INFORMATION: Exam: CT Abdomen And Pelvis With Contrast Exam date and time: 09/17/2019 6:36 PM Age: 69 years old Clinical indication: Abdominal pain; Localized; Right upper quadrant (ruq); Prior surgery; Surgery date: 6+ months; Surgery type: Hyst; Patient HX: C/O ruq pain w HX of gallstones TECHNIQUE: Imaging protocol: Computed tomography of the abdomen and pelvis with intravenous contrast. Axial, coronal and sagittal reformatted images were created and reviewed. Radiation optimization: All CT scans at this facility use at least one of these dose optimization techniques: automated exposure control; mA and/or kV adjustment per patient size (includes targeted exams where dose is matched to clinical indication); or iterative reconstruction. Contrast material: OMNI 300; Contrast volume: 95 ml; Contrast route: INTRAVENOUS (IV); COMPARISON: US gall bladder [id number] 09/17/2019 4:24 PM RADIATION DOSE METRICS: Total DLP (mGy-cm): 1314.06 FINDINGS: Lungs: Mild linear stranding and groundglass at the lung bases, likely due to atelectasis and/or scarring. Mediastinal space: Small hiatal hernia. Liver: Mild intra hepatic biliary ductal dilatation. Gallbladder and bile ducts: Cholelithiasis and mild gallbladder distention with prominent associated gallbladder wall thickening, mural irregularity and pericholecystic stranding. Trace loculated pericholecystic fluid. Pancreas: Unremarkable. Spleen: Unremarkable. Adrenals: 3.8 x 3.1 cm ovoid right adrenal mass containing macroscopic fat, compatible with a myelolipoma (no follow-up is indicated based on the imaging appearance). Kidneys and ureters: Subcentimeter low-density renal lesions bilaterally, measuring up to 6 mm, too small to characterize. No radiodense calculi. No hydronephrosis. Stomach and bowel: Colonic diverticulosis without evidence of diverticulitis. No obstruction. No bowel wall thickening. No pneumatosis. Appendix: Normal. Intraperitoneal space: No free fluid. No organized fluid collection. No free air. Vasculature: Mild atherosclerotic disease. No aneurysm or dissection. Lymph nodes: No pathologically enlarged lymph nodes. Bladder: Decompressed urinary bladder. Reproductive: Unremarkable. Bones/joints: No acute osseous abnormality. Osteopenia. Mild degenerative changes. Soft tissues: Unremarkable. CT/CT abdomen pelvis w con* [id number] IMPRESSION: 1. Findings compatible with acute cholecystitis. Localized gallbladder perforation cannot be excluded. 2. Additional findings, as above. COMMENTS: Consistent with the [employer]'s Incidental Findings Committee white paper (J Am Alisia Radiol 2018): Any incidental renal lesion less than 1.0 cm or classified as too small to characterize, or any incidental cystic renal lesion characterized as simple-appearing, is likely benign. No follow-up imaging is recommended for these lesions per consensus recommendations based on imaging criteria. Radiation Dose CTDIVOL = (mGy): DLP = 1314.06 (mGy-cm)
[2019-09-17] MEDS: iohexol 300 mg/mL 100 mL Btl IV (18:47)
[2019-09-17 18:49] LABS: Add Urine Microscopic? YES; Bilirubin Urine 1+ (NEGATIVE); Blood Urine Neg (Negative); Glucose Urine UA Norm (Normal); Ketones Urine Negative (Negative); Leukocyte Esterase Urine 2+ (Negative); Nitrate Urine Negative (Negative); Protein Urine 1+ (Negative); Specific Gravity, Urine 1.025 (1.005-1.030); Urine Color Yellow (Yellow); Urobilinogen Urine 8 mg/dL (Negative); pH Urine 5 (5-7)
[2019-09-17 18:55] LABS: WBC Urine 55-80 /hpf (0-5)
[2019-09-17 18:56] LABS: Add Urine Culture? Yes; Amorphous Sediment Urine 2+; Bacteria Urine 3+
--- NOTE | 2019-09-17 19:01 | PC.NURSE ---
Patient returned from CT by stretcher. Patient hooked back up to monitoring. Patient states her pain is back at a 6 on a scale of 1-10.
[2019-09-17 19:08] LABS: Troponin 5 2HR 8.98 ng/L (0-10)
[2019-09-17 19:14] LABS: Troponin 5 2HR Delta -2.02 ABS# (0-10)
[2019-09-17 19:40] LABS: Anion Gap 23.8 (5-19); Blood Urea Nitrogen 23 mg/dL (8-23); Calcium 9.5 mg/dL (8.5-10.5); Carbon Dioxide 19 mmol/L (22-29); Chloride 96 mmol/L (98-107); Glucose 116 mg/dL (65-115); Osmolality Calculated 278 mOsm/kg (285-295); Potassium 3.8 mmol/L (3.5-5.1); Sodium 135 mmol/L (136-145)
[2019-09-17] MEDS: piperacillin-tazobactam 3.375 GM in sodium chloride 0.9% (plus) 50 ML IV (19:53)
--- NOTE | 2019-09-17 21:55 | ECG_ITS ---
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 Measurements Intervals [place] Rate: 99 P: 33 FL: 193 QRS: -34 QRSD: 99 T: 23 QT: 358 QTc: 461 Interpretive Statements SINUS RHYTHM MARKED LEFT AXIS DEVIATION [QRS AXIS < -30] VOLTAGE CRITERIA FOR LVH [MEETS CRITERIA IN ONE OF: R(aVL), S(V1), R(V5), R(V5/V6)+S(V1)] INTERPRETATION BASED ON A DEFAULT AGE OF 40 YEARS Compared to ECG 09/17/2019 19:04:36 Sinus tachycardia no longer present ST (T wave) deviation no longer present Electronically Signed On 09-17-2019 21:53:16 CDT by Mahad Walter M.D. [id number] f
[2019-09-17] MEDS: trazodone 50 mg Tablet PO (23:02)
[2019-09-17] MEDS: ropinirole 0.25 mg Tablet 0.5 MG PO (23:02)
[2019-09-17] MEDS: lactated ringers 1,000 ML 100 ML IV (23:03)
[2019-09-17 23:18] LABS: Troponin 5 6HR 11.64 ng/L (0-10); Troponin 5 6HR Delta 0.64 ng/L (0-12)
[2019-09-18] VITALS (24 sets, daily range): BP systolic 105–146; BP diastolic 48–99; PULSE 63–96; RESP 2–24; TEMP 36.2–36.8; O2SAT 94–99
[2019-09-18] MEDS: HYDROcodone-acetaminophen 5-325 mg Tablet 1 TAB PO ×2 (02:27→15:46)
[2019-09-18] MEDS: piperacillin-tazobactam 3.375 GM in sodium chloride 0.9% (plus) 50 ML IV ×3 (04:17→20:04)
[2019-09-18] MEDS: morphine 4 mg/mL SDV 1 mL 3 MG IVP (06:40)
[2019-09-18] MEDS: sodium chloride 0.9% 1,000 ML 30 ML IV (07:35)
--- NOTE | 2019-09-18 07:43 | PM.HP ---
Providers/Chief Complaint Admitting Physician: Sebastian Spencer MD Primary Care Provider: Regino Smith MD Chief Complaint: abd pain History of Present Illness Erin Rodriguez is a 69 year old female who has had intermittent episodes of right upper quadrant pain for the last 1 year which is attributed to gas pains. Patient states that this recent episode started about 3 weeks ago and has been progressively worsening with associated worsening right upper quadrant pain, nausea. No vomiting. Patient had fevers and chills. Denies any jaundice. No history of peptic ulcer disease. Review of Systems General: Reports: 10 or more systems reviewed and unremarkable except in HPI and below Medications/Allergies Home Medications Medication Instructions Recorded Confirmed Last Taken Type atenolol 25 mg tablet 50 mg PO BID 09/12/19 09/17/19 09/16/19 History paroxetine HCl 20 mg tablet 20 mg PO DAILY 09/12/19 09/17/19 09/16/19 History ropinirole 0.5 mg tablet 0.5 mg PO TID 09/12/19 09/17/19 09/16/19 History tramadol 50 mg tablet 50 mg PO BID PRN 09/12/19 09/17/19 09/10/19 History trazodone 50 mg tablet 50 mg PO BEDTIME 09/12/19 09/17/19 09/16/19 History hydrocodone-acetaminophen 1 tab PO Q6H PRN 09/17/19 09/17/19 09/17/19 History ondansetron HCl [Zofran] 4 mg PO DAILY PRN 09/17/19 09/17/19 09/16/19 History Allergies Allergy/AdvReac Type Severity Reaction Status Date / Time No Known Allergies Allergy Verified 09/12/19 17:30 PFSH Acute PFSH: Medical History Depression Hypertension Surgical History S/P hysterectomy S/P tubal ligation Social History Smoking and tobacco status: never smoked Vitals/I&O/Wt Last Vital Signs Temp 98.3 F 09/18/19 07:30 Pulse 87 09/18/19 07:30 Resp 18 09/18/19 07:30 BP 126/70 09/18/19 07:30 Pulse Ox 95 09/18/19 07:30 09/17/19 09/18/19 09/18/19 22:59 06:59 14:59 Intake Total 1000 / 1000 Output Total 400 / 400 Balance 1000 / 600 -400 / 600 Weight last 48 hrs Weight 220 lb Physical Exam Narrative: EXAM NARRATIVE: HEENT: Normocephalic Eye: Sclera /conjunctiva normal Respiratory and chest: Bilateral clear breath sounds on auscultation Cardiovascular: Normal S1 and S2 heart sounds Abdomen: Soft to palpation, extremely tender right upper quadrant, Arzate sign positive Neurological: Oriented to place person and time Skin: Intact, no lesions appreciated on gross exam Data : 09/17/19 16:14 09/17/19 16:14 A&P Assessment and plan (1) Cholecystitis: 69-year-old female with right upper quadrant pain, leukocytosis and imaging consistent with acute calculus cholecystitis. Plan for laparoscopic possible open cholecystectomy Procedure, risks, benefits and alternatives have been discussed with the patient who wishes to proceed with surgery. 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
--- NOTE | 2019-09-18 07:53 | ANES.PREANE2 ---
Pre-Anesthetic Assessment Pre-Anesthetic Assessment: Height/Weight: Height 1.75 m Weight 99.79 kg Temp Pulse Resp BP Pulse Ox 98.3 F 87 18 126/70 95 09/18/19 07:30 09/18/19 07:30 09/18/19 07:30 09/18/19 07:30 09/18/19 07:30 Preop Diagnosis: acute cholecystitis Proposed Procedure: Operation Date: 09/18/19 08:20 Proposed Procedures p Laparoscopic Cholecystectomy(Not Applicable) - Sebastian Spencer MD Familial anesthetic complications: None Was Beta Parker taken within 24 hours: Yes Last intake: NPO > 8 hrs Social: Social History: No alcohol and No tobacco Exam: Pre-Anes Outpt Exam: alert, oriented x 3, clear to auscultation bilaterally and regular rate & rhythm Airway: Cervical ROM: WNL MP: 2 Additional comments: missing Pulmonary: Pulmonary: Sleep apnea (her cpap machine broke) CV/HEM: CV/HEM: HTN Comments: rheumatic fever as a child, was told she had a murmur during her with twins but it has never caused any issue : : None reported Hepatic: Hepatic: None reported GI: GI: None reported Metabolic: Metabolic: DM (Borderline) Musc/skel: Musc/skel: None reported Neuropsych: Neuropsych: TIA (3 years ago) Anesthetic Plan: ASA status: 2 Anesthesia: General Risk of > 500 ml blood loss (7ml/kg in children): No Meds/Allergies Current Medications: Current Medications Generic Name Dose Route Start Last Admin Trade Name Freq PRN Reason Stop Dose Admin Hydrocodone Bitart /Acetaminophen 1 tab 09/17/19 20:00 09/18/19 02:27 Prospect 5-325 Mg PO 1 tab Q6H PRN Administration MODERATE PAIN Lactated Ringer's 1,000 mls @ 100 m ls/hr 09/17/19 20:00 09/17/19 23:03 Lactated Ringers IV 100 mls/hr .Q10H DANA Administration Piperacillin Sod/T azobactam 50 mls @ 12.5 mls /hr 09/17/19 20:00 09/18/19 04:17 Sod 3.375 gm/ So dium Chloride IV 12.5 mls/hr Q8H DANA Administration Protocol Sodium Chloride 1,000 mls @ 30 ml s/hr 09/18/19 07:45 09/18/19 07:35 Sodium Chloride 0.9% IV 09/19/19 07:44 30 mls/hr .Q24H DANA Administration Morphine Sulfate 3 mg 09/17/19 20:00 09/18/19 06:40 Morphine IVP 3 mg Q1H PRN Administration SEVERE PAIN Ropinirole HCl 0.5 mg 09/17/19 21:00 09/17/19 23:02 Requip PO 0.5 mg TID DANA Administration Trazodone HCl 50 mg 09/17/19 21:00 09/17/19 23:02 Desyrel PO 50 mg BEDTIME DANA Administration PFSH Anesthesia PFSH: Medical History Depression Hypertension Surgical History S/P hysterectomy S/P tubal ligation Social History Smoking and tobacco status: never smoked Data Anesthesia CBC & Chem 7: 09/17/19 16:14 09/17/19 16:14 Other Labs: Laboratory Results - last 48 hr 09/17/19 09/17/19 09/17/19 16:14 16:14 16:14 WBC 15.2 H RBC 4.19 Hgb 11.5 Hct 37.8 MCV 90.2 MCH 27.4 L MCHC 30.4 RDW 13.4 Plt Count 410 H MPV 9.3 Neut % (Auto) 90.8 Lymph % (Auto) 3.1 [place] % (Auto) 5.2 Eos % (Auto) 0.1 Baso % (Auto) 0.3 Neut # (Auto) 13.8 H Lymph # (Auto) 0.5 L [place] # (Auto) 0.8 Eos # (Auto) 0.0 Baso # (Auto) 0.0 Nucleated RBC % (auto) 0 Nucleated RBCs # 0.0 Sodium 135 L Potassium 3.8 Chloride 96 L Carbon Dioxide 19 L Anion Gap 23.8 H BUN 23 Creatinine 0.2 L GFR Calculation 352.2 H Glucose 116 H Calculated Osmolality 278 L Lactic Acid 1.7 Calcium 9.5 Total Bilirubin 0.2 AST 5 ALT < 5 Alkaline Phosphatase 5 L Troponin I 6 Hour Troponin I Hi Sens Del Troponin T Baseline Troponin T 120 Minute Delta Troponin T Total Protein 0.2 L Albumin 0.2 L Globulin 0.0 L Lipase 3 L Urine Color Urine Appearance Urine pH Ur Specific [place] Urine Protein Urine Glucose (UA) Urine Ketones Urine Blood Urine Nitrate Urine Bilirubin Urine Urobilinogen Ur Leukocyte Esterase Urine RBC Urine WBC Ur Squamous Epith Cells Amorphous Sediment Urine Bacteria 09/17/19 09/17/19 09/17/19 16:14 18:18 18:19 WBC RBC Hgb Hct MCV MCH MCHC RDW Plt Count MPV Neut % (Auto) Lymph % (Auto) [place] % (Auto) Eos % (Auto) Baso % (Auto) Neut # (Auto) Lymph # (Auto) [place] # (Auto) Eos # (Auto) Baso # (Auto) Nucleated RBC % (auto) Nucleated RBCs # Sodium Potassium Chloride Carbon Dioxide Anion Gap BUN Creatinine GFR Calculation Glucose Calculated Osmolality Lactic Acid Calcium Total Bilirubin AST ALT Alkaline Phosphatase Troponin I 6 Hour Troponin I Hi Sens Del Troponin T Baseline 11 H Troponin T 120 Minute 8.98 Delta Troponin T -2.02 L Total Protein Albumin Globulin Lipase Urine Color Yellow Urine Appearance Sl cloudy A Urine pH 5 Ur Specific [place] 1.025 Urine Protein 1+ H Urine Glucose (UA) Norm Urine Ketones Negative Urine Blood Neg Urine Nitrate Negative Urine Bilirubin 1+ H Urine Urobilinogen 8 H Ur Leukocyte Esterase 2+ H Urine RBC None Urine WBC 55-80 H Ur Squamous Epith Cells 5-10 H Amorphous Sediment 2+ Urine Bacteria 3+ H 09/17/19 22:49 WBC RBC Hgb Hct MCV MCH MCHC RDW Plt Count MPV Neut % (Auto) Lymph % (Auto) [place] % (Auto) Eos % (Auto) Baso % (Auto) Neut # (Auto) Lymph # (Auto) [place] # (Auto) Eos # (Auto) Baso # (Auto) Nucleated RBC % (auto) Nucleated RBCs # Sodium Potassium Chloride Carbon Dioxide Anion Gap BUN Creatinine GFR Calculation Glucose Calculated Osmolality Lactic Acid Calcium Total Bilirubin AST ALT Alkaline Phosphatase Troponin I 6 Hour 11.64 H Troponin I Hi Sens Del 0.64 Troponin T Baseline Troponin T 120 Minute Delta Troponin T Total Protein Albumin Globulin Lipase Urine Color Urine Appearance Urine pH Ur Specific [place] Urine Protein Urine Glucose (UA) Urine Ketones Urine Blood Urine Nitrate Urine Bilirubin Urine Urobilinogen Ur Leukocyte Esterase Urine RBC Urine WBC Ur Squamous Epith Cells Amorphous Sediment Urine Bacteria Cardiac Studies: No Data to Display
--- NOTE | 2019-09-18 09:14 | SUR.OPER ---
updated of patients status.
--- NOTE | 2019-09-18 09:55 | SUR.PHASEI ---
0951 PATIENT TO PACU FROM OR AT THIS TIME. RR EVEN AND UNLABORED, SPO2 97% ON SIMPLE MASK AT 8L. 4 INCISIONS TO ABDOMEN, WITH NEHA DRAIN TO RIGHT UPPER QUAD.
[2019-09-18] MEDS: ketorolac 30 mg/mL INJ IVP ×2 (10:12→11:00)
[2019-09-18] MEDS: fentaNYL 50 mcg/mL INJ 2mL IVP ×2 (10:17→10:27)
--- NOTE | 2019-09-18 10:33 | P.OP_ITS ---
Operative Report Date of procedure: September 18, 2019 Pre-op Diagnosis: Acute calculus cholecystitis Post-op Diagnosis: Acute calculus cholecystitis with contained perforation Procedure Done: Laparoscopic cholecystectomy Specimens removed/disposition: Gallbladder Surgeon: Sebastian Spencer Anesthesia: General Estimated blood loss (mL): 25 Condition: stable Disposition: PACU Procedure: The patient was taken to the operating room and was intubated under general anesthesia. After the antibiotic had been administered, the abdomen was prepped and draped in a sterile manner. Using a #15 blade, a 1 centimeter infraumbilical curvilinear incision was made and using an open Clint technique the peritoneal cavity was entered. A 10 millimeter port was placed and 15 millimeters of pneumoperitoneum was created. A 10 millimeter, 30 degrees scope was then introduced. Three 5 millimeter ports were placed in the epigastric, midclavicular and the anterior axillary line two fingerbreadths below the costal margin on the right side under the direct visualization. The omentum was inflamed and adherent to the fundus and body of the gallbladder. There is moderate amount of bile and pus noted within the peritoneal cavity. The omentum was gently peeled away from the fundus and body of the gallbladder revealing a perforation and an acutely inflamed gallbladder. Using suction director systems the gallbladder was gently dissected free from the adherent omentum until the Calot's triangle was visualized. Ratcheted forceps were introduced into the lateral most port and was used to retract the fundus of the gallbladder cephalad and using forceps the infundibulum of the gallbladder was retracted laterally. Using L-hook cautery the peritoneum overlying the Calot's triangle was opened medially and laterally until the cystic duct and the cystic artery were skeletonized. Dissection was carried along the body of the gallbladder and after ensuring critical view of safety, 4 clips applied on the cystic duct and 3 clips applied on the cystic artery and cut leaving, 3 clips on the remaining portion of the duct and 2 clips on the remaining portion of the artery. The rest of the gallbladder was dissected off the liver using L-hook cautery. There was no bleeding or bile leaking noted from the gallbladder fossa and the clips appeared to be in place. An EndoCatch bag was introduced to remove the gallbladder. There was spillage of large amount of stone from the gallbladder since the wall was extremely thinned out from inflammation. Using 3 separate Endo Catch bags all the stones were retrieved. The peritoneal cavity was irrigated with 3 L of warm saline and a 10 flat NEHA drain was introduced through the lateralmost port and placed in the subhepatic space and attached to bulb suction and sutured with 2-0 Prolene suture. All the ports were removed under direct visualization and there was no bleeding noted from the port sites. The fascia of the umbilicus was closed using [id number] Vicryl sutures and the subcutaneous tissue was approximated using 3-0 Vicryl sutures. The skin at all four ports were closed using 4-0 Monocryl and Dermabond. A total of 10 millimeters of 0.5% Marcaine was infiltrated around the port sites. The patient was stable throughout the procedure.
--- NOTE | 2019-09-18 10:57 | SUR.PHASEI ---
1040 PATIENT TO MED SURG. PAIN IMPROVED. DENIES NAUSEA, TOLERATING ICE CHIPS. 4 INCISIONS TO ABDOMEN, WITH NEHA DRAIN TO RIGHT UPPER QUAD. DRESSING TO DRAIN REINFORCED WITH ARRIVING TO MED SURG. ANESTHESIA AWARE OF LAST DOSE OF PAIN MEDICATION, THIS NURSE REMAINED WITH PATIENT UNTIL 105
[2019-09-18] MEDS: lactated ringers 1,000 ML 100 ML IV ×2 (10:58→17:05)
[2019-09-18] MEDS: PARoxetine 20 mg Tablet PO (10:59)
[2019-09-18] MEDS: ropinirole 0.25 mg Tablet 0.5 MG PO ×3 (11:00→20:03)
[2019-09-18] MEDS: fentaNYL 50 mcg/mL INJ 2mL 100 MCG IVP (11:05)
[2019-09-18 11:29] LABS: Glucose Point of Care 133 mg/dL (70-110)
--- NOTE | 2019-09-18 14:32 | PC.CHAP ---
Pastoral Care Encounter/Spiritual Assessment Type of Contact [] Declined employment advisor visit [] Patient/Family/Request visit [] Outpatient visit [] Follow-up visit [] Physician referral [] Code/Alert [X] Routine visit [] Staff referral [] Actively dying [] Patient sleeping [] Family support [] [] Out of room [] Palliative care [] [] Receiving care in room [] Pre-surgical visit [] Trauma [] Long length of stay [] ICU visit [] Other: Relational/Emotional Strength [] Patient feels connected with others/family/visitors/staff [] Distress [] Loneliness/isolation [] Abandonment Spirituality of Patient [] Person of Paulette [] Attends Amish of their [place] [] Believes in Prayer [] Reads Bible or Orthodoxy materials [] There are Spiritual issues to be addressed Paper Cone Grader Interventions [] Prayer [] Active listening [] Non-anxious presence [] Spiritual/emotional support [] Crisis/trauma care [] Spiritual counseling [] Bereavement support [] Provided bereavement packet [] Provided Bible/devotional materials [] Provided toy/stuffed animal, coloring book to patient or family member [] Provided Communion [] Anointing/[place] [] Salvation [] Completed spiritual assessment [] Other: Impact on Illness or Injury [] Angry [] Fearful [] Anxious [] Often cries [] Exhaustion [] Unable to work [] Unable to attend baptist [] Unable to walk/stand [] Unable to read [] Unable to drive [] Unable to eat/drink [] Unable to sleep [] Unable to be with family [] Patient intubated [] Other: Summary Time spent with patient
[2019-09-18] MEDS: atenolol 50 mg Tablet PO (17:05)
[2019-09-18 17:12] LABS: Glucose Point of Care 129 mg/dL (70-110)
[2019-09-18] MEDS: trazodone 50 mg Tablet PO (20:03)
[2019-09-19] VITALS (7 sets, daily range): BP systolic 114–134; BP diastolic 54–73; PULSE 62–80; RESP 17–20; TEMP 36.2–36.8; O2SAT 90–96
[2019-09-19] MEDS: HYDROcodone-acetaminophen 5-325 mg Tablet 1 TAB PO ×4 (03:26→21:27)
[2019-09-19] MEDS: piperacillin-tazobactam 3.375 GM in sodium chloride 0.9% (plus) 50 ML IV ×3 (03:26→21:25)
[2019-09-19] MEDS: lactated ringers 1,000 ML 100 ML IV (03:32)
[2019-09-19 07:14] LABS: Basophils % 0.1 %; Hematocrit 29.7 % (37.0-47.0); Hemoglobin 8.8 g/dL (11.5-15.3); Lymphocytes # 0.6 10^3/uL (0.8-4.8); Lymphocytes % 3.3 %; Mean Corpuscular HGB Conc 29.6 g/dL (30.0-36.0); Mean Corpuscular Hemoglobin 27.2 pg (28.0-34.0); Mean Platelet Volume 9.7 fL (7.4-10.4); Monocytes # 0.7 10^3/uL (0.2-0.9); Monocytes % 3.6 %; Neutrophils # 16.7 10^3/uL (1.8-7.7); Neutrophils % 92.3 %; Nucleated Red Blood Cells % 0 %; Platelet Count 337 10^3/cmm (130-400); Red Blood Count 3.23 10^6/uL (4.1-5.3); Red Cell Distribution Width 14.3 % (12.1-15.1); White Blood Count 18.1 10^3/uL (4.0-10.0)
[2019-09-19 07:37] LABS: Alanine Aminotransferase 15 U/L (0-33); Albumin Level 2.1 g/dL (3.5-5.2); Alkaline Phosphatase 106 IU/L (35-105); Anion Gap 17.5 (5-19); Aspartate Amino Transferase 23 U/L (0-32); Blood Urea Nitrogen 36 mg/dL (8-23); Calcium 8.6 mg/dL (8.5-10.5); Carbon Dioxide 20 mmol/L (22-29); Chloride 104 mmol/L (98-107); Globulin 4.2 g/dL (1.3-4.6); Glomerular Filtration Rate 18.3 mL/min (90-130); Glucose 94 mg/dL (65-115); Osmolality Calculated 281 mOsm/kg (285-295); Potassium 4.5 mmol/L (3.5-5.1); Sodium 137 mmol/L (136-145); Total Bilirubin 0.7 mg/dL (0.15-1.2); Total Protein 6.3 g/dL (6.6-8.7)
--- NOTE | 2019-09-19 08:06 | P.PN_ITS ---
Subjective Subjective: Interval history: Patient is status post laparoscopic cholecystectomy, feels a lot better, no nausea or vomiting. Vitals/I&O/Wt Last Vital Signs Temp 97.4 F L 09/19/19 08:00 Pulse 65 09/19/19 08:00 Resp 17 09/19/19 08:00 BP 119/54 09/19/19 08:00 Pulse Ox 90 09/19/19 08:00 09/18/19 09/19/19 09/19/19 22:59 06:59 14:59 Intake Total 901.667 / 3361.667 1050 / 3361.667 Output Total 350 / 720 300 / 720 Balance 551.667 / 2641.667 750 / 2641.667 Weight last 48 hrs Weight 220 lb Physical Exam Narrative: EXAM NARRATIVE: Abdomen: Soft, tender, minimally distended, NEHA drain output is serosanguineous Data : 09/19/19 07:05 09/19/19 07:05 A&P Assessment and plan (1) Status post laparoscopic cholecystectomy: Patient feels better, white count is out to 18 today Continue IV Zosyn Advance to regular diet Ambulate ad hemant. Status: Acute (2) Acute renal failure: Her creatinine is gone up to 2.6 today from 0.2-day before yesterday. Patient received Toradol yesterday in PACU. I consulted the hospitalist service for help with medical management DC Ringer's lactate 1 L normal saline bolus Increase fluids to 150 cc/h Repeat labs tomorrow Place Manning catheter to monitor urine output more accurately Status: Acute Attestations Medical Necessity Statement*: Patient will need 1 more night of inpatient stay to ensure resolution of acute renal failure as well as leukocytosis Coding Level of Care Code Acute Band Attacher for Chg Fwd Diagnoses Status post laparoscopic cholecystectomy Z90.49 Acute renal failure N17.9
[2019-09-19] MEDS: sodium chloride 0.9% 1,000 ML 999 ML IV (08:38)
[2019-09-19] MEDS: sodium chloride 0.9% 1,000 ML 150 ML IV ×3 (08:45→23:47)
[2019-09-19] MEDS: PARoxetine 20 mg Tablet PO (08:46)
[2019-09-19] MEDS: atenolol 50 mg Tablet PO ×2 (08:46→17:02)
[2019-09-19] MEDS: ropinirole 0.25 mg Tablet 0.5 MG PO ×3 (08:47→21:26)
--- NOTE | 2019-09-19 09:31 | USR_ITS ---
PROCEDURE INFORMATION: Exam: US Retroperitoneal; Complete; Kidneys and Bladder Exam date and time: 09/19/2019 11:08 AM Age: 69 years old Clinical indication: Abnormal findings; Abnormal lab test; Abnormal kidney function lab tests; Prior surgery; Surgery date: Post-operative (0-2 days); Surgery type: Gb; Additional info: Gaetano TECHNIQUE: Imaging protocol: Real-time ultrasound of the retroperitoneum with image documentation. Complete exam focused on the kidneys and bladder. COMPARISON: US gall bladder [id number] 09/17/2019 4:24 PM FINDINGS: Right kidney: 9.5 cm in length. Mildly echogenic, suggesting medical renal disease. No stones. No hydronephrosis. Left kidney: 11.7 cm in length. Mildly echogenic, suggesting medical renal disease. 8 x 6 x 7 mm simple cyst. No stones. No hydronephrosis. Aorta: Unremarkable as visualized. No aneurysm. US/US renal BI* [id number] IMPRESSION: Mildly echogenic kidneys, suggesting medical renal disease.
[2019-09-19 10:10] LABS: Add Urine Microscopic? YES; Bilirubin Urine Neg (NEGATIVE); Blood Urine Neg (Negative); Glucose Urine UA Norm (Normal); Ketones Urine Negative (Negative); Leukocyte Esterase Urine Negative (Negative); Nitrate Urine Negative (Negative); Protein Urine Trace (Negative); Specific Gravity, Urine 1.015 (1.005-1.030); Urine Appearance Cloudy (CLEAR); Urine Color Yellow (Yellow); Urobilinogen Urine Norm (Negative); pH Urine 5 (5-7)
[2019-09-19 10:11] LABS: Squamous Epithelial Cell Urine 0-4 (0-5)
[2019-09-19 10:12] LABS: Add Urine Culture? No; Amorphous Sediment Urine 2+; Bacteria Urine 1+
[2019-09-19 10:19] LABS: Urine Creatinine 117 mg/dL (28-217); Urine Random Sodium 26 mmol/L
[2019-09-19 11:33] LABS: Eosinophil Urine No Eosinophils Seen; Urine Eosinophil Count 0 (0-0)
--- NOTE | 2019-09-19 12:32 | P.CONIM_ITS ---
Providers/Reason For Consult Consulting Physican/Specialty*: General medicine Reason for Consult*: Acute kidney injury Attending Physician: Sebastian Spencer MD Primary Care Provider: Regino Smith MD History of Present Illness History of Present Illness Erin Rodriguez is a 69 year old female with a past medical history of hypertension, hypertensive nephropathy,, NSAID use, depression who presents to [facility] due to abdominal pain, status post laparoscopic cholecystectomy by Dr. Spencer, hospitalist team was consulted for worsening kidney function. Patient states that for the last few days she is not been drinking a lot of fluids given her worsening abdominal pain. She also admits to NSAID use. 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 Denies any history of heart failure. Denies any history of renal failure. Denies any history of kidney stones. She does have a UTI gram-negative rods, currently on Zosyn. Does report rheumatic fever as a child, no known kidney disease associated rheumatic fever. Review of Systems Const: Denies: fever(s), chills, fatigue or malaise Eyes: Denies: change in vision or blurry vision ENMT: Denies: nasal congestion Resp: Denies: dyspnea, productive cough, non-productive cough or wheezing GI: Denies: abdominal pain, nausea, vomiting, hematemesis, diarrhea, constipation, hematochezia or melena : Denies: flank pain, dysuria or urinary frequency Musc: Denies: neck pain or back pain Skin/Breast: Denies: rash Neuro: Denies: headache(s), dizziness or vertigo Psych: Denies: anxiety or depression Endo: Denies: polyuria or polydipsia Meds/Allergies Home Medications and Allergies Home Medications Medication Instructions Recorded Confirmed Last Taken Type atenolol 25 mg tablet 50 mg PO BID 09/12/19 09/17/19 09/16/19 History paroxetine HCl 20 mg tablet 20 mg PO DAILY 09/12/19 09/17/19 09/16/19 History ropinirole 0.5 mg tablet 0.5 mg PO TID 09/12/19 09/17/19 09/16/19 History tramadol 50 mg tablet 50 mg PO BID PRN 09/12/19 09/17/19 09/10/19 History trazodone 50 mg tablet 50 mg PO BEDTIME 09/12/19 09/17/19 09/16/19 History hydrocodone-acetaminophen 1 tab PO Q6H PRN 09/17/19 09/17/19 09/17/19 History ondansetron HCl [Zofran] 4 mg PO DAILY PRN 09/17/19 09/17/19 09/16/19 History Allergies Allergy/AdvReac Type Severity Reaction Status Date / Time No Known Allergies Allergy Verified 09/12/19 17:30 Current Medications Current Medications Generic Name Dose Route Start Last Admin Trade Name Freq PRN Reason Stop Dose Admin Hydrocodone Bitart/Acetaminophen 1 tab 09/17/19 20:00 09/19/19 11:37 [place] 5-325 Mg PO 1 tab Q6H PRN Administration MODERATE PAIN Hydrocodone Bitart/Acetaminophen 1 tab 09/18/19 10:46 09/19/19 03:26 [place] 5-325 Mg PO 1 tab Q4H PRN Administration MODERATE PAIN Atenolol 50 mg 09/18/19 09:00 09/19/19 08:46 Tenormin PO 50 mg BID DANA Administration Piperacillin Sod/Tazobactam 50 mls @ 12.5 mls/hr 09/17/19 20:00 09/19/19 11:38 Sod 3.375 gm/ Sodium Chloride IV 12.5 mls/hr Q8H DANA Administration Protocol Sodium Chloride 1,000 mls @ 150 mls/hr 09/19/19 08:15 09/19/19 08:45 Sodium Chloride 0.9% IV 150 mls/hr .Q6H40M DANA Administration Morphine Sulfate 3 mg 09/17/19 20:00 09/18/19 06:40 Morphine IVP 3 mg Q1H PRN Administration SEVERE PAIN Paroxetine HCl 20 mg 09/18/19 09:00 09/19/19 08:46 Paxil PO 20 mg DAILY DANA Administration Ropinirole HCl 0.5 mg 09/17/19 21:00 09/19/19 08:47 Requip PO 0.5 mg TID DANA Administration Trazodone HCl 50 mg 09/17/19 21:00 09/18/19 20:03 Desyrel PO 50 mg BEDTIME DANA Administration PFSH Acute PFSH: Medical History (Updated 09/19/19 @ 08:07 by Sebastian Spencer MD) Depression Hypertension Surgical History (Updated 09/19/19 @ 08:07 by Sebastian Spencer MD) S/P hysterectomy S/P tubal ligation Status post laparoscopic cholecystectomy (09/18/19) Social History Smoking and tobacco status: never smoked Vitals/I&O/Wt Last Vital Signs Temp 98.0 F 09/19/19 11:51 Pulse 66 09/19/19 11:51 Resp 20 H 09/19/19 11:51 BP 118/70 09/19/19 11:51 Pulse Ox 91 09/19/19 11:51 09/18/19 09/19/19 09/19/19 22:59 06:59 14:59 Intake Total 901.667 / 2311.667 1050 / 3361.667 890 / 890 Output Total 350 / 420 300 / 720 50 / 50 Balance 551.667 / 1891.667 750 / 2641.667 840 / 840 Weight last 48 hrs Weight 99.79 kg Physical Exam Const: COMMON NORMALS: no acute distress and patient oriented x3 HENMT: COMMON NORMALS: normocephalic HEAD & SCALP: normocephalic Neck/C-Spine: COMMON NORMALS: no JVD Resp: COMMON NORMALS: normal respiratory effort, No retractions, No use of accessory muscles and clear to auscultation bilaterally AUSCULTATION: clear to auscultation bilaterally Cardio: COMMON NORMALS: no JVD, regular rate, regular rhythm, S1 normal heart sound present and S2 normal heart sound present RATE: regular rate RHYTHM: regular rhythm HEART SOUNDS: S1 normal heart sound present and S2 normal heart sound present GI: COMMON NORMALS: Normal to inspection, nondistended, normoactive bowel sounds present, Soft to palpation, non-tender, no masses and no bruits PALPATION: Yes Soft to palpation OTHER: Surgical site looks clean and dry Extremity: COMMON NORMALS: capillary refill normal, no clubbing, cyanosis or edema, no calf tenderness and no pedal edema Neuro: COMMON NORMALS: patient oriented x3 Psych: COMMON NORMALS: mental status grossly normal Urinary Catheter Management^: Manning: Cath Placed During This Visit: yes Urinary Catheter Date of Insertion: 09/19/19 Urinary Catheter Time of Insertion: 08:59 Data Micro: Micro: Microbiology 09/17/19 18:19 Urine Culture - Pr eliminary Urine,Clean Catch Gram Negative R ods A&P Assessment and plan (1) Status post laparoscopic cholecystectomy: -Postop day #1 -Pain control and anticoagulation as per surgical team -Currently on Zosyn Status: Acute (2) Acute renal failure: -Multifactorial likely related to underlying hypertensive nephropathy, NSAID use, sepsis, prerenal azotemia -Creatinine up to 2.2 -Continue IV fluids at 125 cc an hour -Urine studies -Renal ultrasound -Avoid nephrotoxic agents Status: Acute (3) Hypertension: Status: Acute Qualifiers: Hypertension type: essential hypertension Qualified Code(s): I10 - Essential (primary) hypertension Coding Level of Care Code Acute Color Dipper for [facility] Diagnoses Status post laparoscopic cholecystectomy Z90.49 Acute renal failure N17.9 Hypertension I10 Hypertension type: essential hypertension
[2019-09-19] MEDS: trazodone 50 mg Tablet PO (21:27)
[2019-09-20] VITALS (9 sets, daily range): BP systolic 114–165; BP diastolic 78–89; PULSE 71–92; RESP 16–22; TEMP 36.6–37.4; O2SAT 91–98
[2019-09-20] MEDS: piperacillin-tazobactam 3.375 GM in sodium chloride 0.9% (plus) 50 ML IV ×3 (04:08→21:16)
[2019-09-20] MEDS: HYDROcodone-acetaminophen 5-325 mg Tablet 1 TAB PO ×3 (04:08→19:28)
[2019-09-20 07:38] LABS: Basophils # 0.1 10^3/uL (0.0-0.1); Basophils % 0.3 %; Eosinophils # 0.2 10^3/uL (0.0-0.8); Eosinophils % 1.2 %; Hemoglobin 10.7 g/dL (11.5-15.3); Lymphocytes # 0.8 10^3/uL (0.8-4.8); Lymphocytes % 4.3 %; Mean Corpuscular HGB Conc 30.6 g/dL (30.0-36.0); Mean Corpuscular Hemoglobin 28.2 pg (28.0-34.0); Mean Corpuscular Volume 92.1 fL (81-99); Mean Platelet Volume 9.6 fL (7.4-10.4); Monocytes # 0.8 10^3/uL (0.2-0.9); Monocytes % 4.5 %; Neutrophils # 16.6 10^3/uL (1.8-7.7); Neutrophils % 88.2 %; Nucleated Red Blood Cells % 0 %; Platelet Count 405 10^3/cmm (130-400); Red Cell Distribution Width 14.8 % (12.1-15.1); White Blood Count 18.9 10^3/uL (4.0-10.0)
[2019-09-20 07:59] LABS: Alanine Aminotransferase 14 U/L (0-33); Albumin Level 2.8 g/dL (3.5-5.2); Alkaline Phosphatase 116 IU/L (35-105); Aspartate Amino Transferase 22 U/L (0-32); Blood Urea Nitrogen 31 mg/dL (8-23); Calcium 8.2 mg/dL (8.5-10.5); Carbon Dioxide 17 mmol/L (22-29); Chloride 108 mmol/L (98-107); Globulin 3.4 g/dL (1.3-4.6); Glomerular Filtration Rate 24.7 mL/min (90-130); Glucose 88 mg/dL (65-115); Osmolality Calculated 289 mOsm/kg (285-295); Sodium 141 mmol/L (136-145); Total Bilirubin 0.7 mg/dL (0.15-1.2); Total Protein 6.2 g/dL (6.6-8.7)
[2019-09-20] MEDS: ropinirole 0.25 mg Tablet 0.5 MG PO ×3 (10:05→21:16)
[2019-09-20] MEDS: atenolol 50 mg Tablet PO ×2 (10:05→17:19)
[2019-09-20] MEDS: PARoxetine 20 mg Tablet PO (10:05)
--- NOTE | 2019-09-20 11:02 | PC.NURSE ---
Rcvd order from Dr Spencer to hold NS at 150ml/hr
--- NOTE | 2019-09-20 13:42 | P.PN_ITS ---
Subjective Subjective: Interval history: History and physical and hospital stay noted. Patient was started on fluids at 150 yesterday because of worsening kidney functions. Today morning patient was out of breath so fluid was stopped. On evaluation patient is sitting comfortably in bed on 3 L nasal cannula saturating 96%. He denies of having any nausea, vomiting, headache, abdominal pain, cough, chest pain, difficulty in breathing at present and is able to tolerate diet. Vitals/I&O/Wt Last Vital Signs Temp 98.1 F 09/20/19 11:10 Pulse 87 09/20/19 11:10 Resp 16 09/20/19 11:10 BP 150/87 09/20/19 11:10 Pulse Ox 96 09/20/19 11:10 09/19/19 09/20/19 09/20/19 22:59 06:59 14:59 Intake Total 2200 / 3090 250 / 3340 530 / 530 Output Total 1300 / 1350 475 / 1825 Balance 900 / 1740 -225 / 1515 530 / 530 Physical Exam Const: COMMON NORMALS: no acute distress and patient oriented x3 HENMT: COMMON NORMALS: normocephalic HEAD & SCALP: normocephalic Neck/C-Spine: COMMON NORMALS: no JVD Resp: COMMON NORMALS: normal respiratory effort, No retractions, No use of accessory muscles and clear to auscultation bilaterally AUSCULTATION: clear to auscultation bilaterally Cardio: COMMON NORMALS: no JVD, regular rate, regular rhythm, S1 normal heart sound present and S2 normal heart sound present RATE: regular rate RHYTHM: regular rhythm HEART SOUNDS: S1 normal heart sound present and S2 normal he art sound present GI: COMMON NORMALS: Normal to inspection, nondistended, normoactive bowel sounds present, Soft to palpation, non-tender, no masses and no bruits PALPATION: Yes Soft to palpation OTHER: Surgical site looks clean and dry Extremity: COMMON NORMALS: capillary refill normal, no clubbing, cyanosis or edema, no calf tenderness and no pedal edema Neuro: COMMON NORMALS: patient oriented x3 Psych: COMMON NORMALS: mental status grossly normal Urinary Catheter Management^: Manning: Cath Placed During This Visit: yes Reason for Continuing Indwelling Catheter: Acute Urinary Retention or Obstru ction Urinary Catheter Date of Insertion: 09/19/19 Urinary Catheter Time of Insertion: 08:59 Data : 09/20/19 07:14 09/20/19 07:14 Micro: Microbiology 09/17/19 18:19 Urine Culture - Final Urine,Clean Catch Klebsiella pneumoniae A&P Assessment and plan (1) Status post laparoscopic cholecystectomy: -Postop day #2 -Pain control and anticoagulation as per surgical team -Currently on Zosyn Status: Acute (2) Acute renal failure: -Multifactorial likely related to underlying hypertensive nephropathy, NSAID use, cholecystitis, postoperative status, prerenal azotemia. On review of chart most likely no sepsis on admission. Creatinine down to 2.0 today. FeNa: 0.7, prerenal Renal ultrasound consistent with possible medical renal disease most likely because of chronic hypertension, NSAID use. Given shortness of breath early in the morning will hold off any current IV fluids now. Have encouraged patient to consume oral liquids liberally. Status: Acute (3) Hypertension: Continue home dose of atenolol twice daily. Goal blood pressure less than 140/90 mmHg. If required can add low-dose amlodipine. For now we will continue to monitor. Status: Acute Qualifiers: Hypertension type: essential hypertension Qualified Code(s): I10 - Essential (primary) hypertension (4) UTI due to Klebsiella species: SPRING Manning. Klebsiella pansensitive other than nitrofurantoin. Patient is on Zosyn for now. Day 3 today. Zosyn will also cover for Klebsiella. Can most likely discharge on oral levofloxacin for Klebsiella UTI to finish a course of 5 days on discharge. Status: Acute Additional A&P Information Shortness of breath: Keep saturation over 90%. Will wean off oxygen accordingly. Check chest x-ray to rule out infiltrate. For now we will hold off on any diuresis, antibiotics and will continue to monitor. Patient's care discussed with her daughter Norma. All questions answered in detail. Attestations Medical Necessity Statement*: As per primary team Time Spent in Patient Care: Greater than 35 minutes (>than 50% of time spent in counselling and/or direct pt care on unit) . Coding Level of Care Code Acute Animal Care Supervisor for [facility] Diagnoses Status post laparoscopic cholecystectomy Z90.49 Acute renal failure N17.9 Hypertension I10 Hypertension type: essential hypertension UTI due to Klebsiella species N39.0; B96.89
--- NOTE | 2019-09-20 13:43 | XRR_ITS ---
PROCEDURE INFORMATION: Exam: XR Chest, 1 View Exam date and time: 09/20/2019 2:23 PM Age: 69 years old Clinical indication: Shortness of breath; Additional info: SOB TECHNIQUE: Imaging protocol: XR of the chest Views: 1 view. COMPARISON: No relevant prior studies available. FINDINGS: Lungs: Linear atelectasis or scarring in the left lung base. The right lung is clear. Pleural space: Small left pleural effusion. No pneumothorax. Heart/Mediastinum: Unremarkable. No cardiomegaly. Bones/joints: Mild thoracic scoliosis. XR/XR chest 1V portable [id number] IMPRESSION: 1. Left base atelectasis and small left pleural effusion.
--- NOTE | 2019-09-20 15:35 | PM.PN ---
Subjective Subjective: Interval history: Patient overall feels better, no nausea or vomiting, had a bowel movement today, NEHA drain output is serosanguineous Vitals/I&O/Wt Last Vital Signs Temp 97.8 F 09/20/19 15:09 Pulse 82 09/20/19 15:09 Resp 16 09/20/19 15:09 BP 114/78 09/20/19 15:09 Pulse Ox 95 09/20/19 15:09 09/20/19 09/20/19 09/20/19 06:59 14:59 22:59 Intake Total 250 / 3340 1130 / 1130 Output Total 475 / 1825 Balance -225 / 1515 1130 / 1130 Physical Exam Narrative: EXAM NARRATIVE: Abdomen: Soft, minimally tender, minimally distended, incisions clean dry and intact, NEHA drain output is serosanguineous Urinary Catheter Management^: Manning: Cath Placed During This Visit: yes, but has since been removed by the nurse Reason for Continuing Indwelling Catheter: Decision to DC Catheter Urinary Catheter Date of Insertion: 09/19/19 Urinary Catheter Time of Insertion: 08:59 Date Urinary Catheter Removed: 09/20/19 Time Urinary Catheter Discontinued: 14:26 Data : 09/20/19 07:14 09/20/19 07:14 Micro: Microbiology 09/17/19 18:19 Urine Culture - Final Urine,Clean Catch Klebsiella pneumoniae A&P Assessment and plan (1) Status post laparoscopic cholecystectomy: WBC at 18 today, patient has been afebrile, overall feeling better Continue IV Zosyn Protonix for GI prophylaxis Heparin for DVT prophylaxis CBC CMP tomorrow morning Status: Acute (2) Acute renal failure: Patient became a bit short of breath this more morning and therefore fluids were stopped, continue fluids at 50 cc/h We will discuss with the hospitalist about possible Lasix Leave Manning catheter in for 1 more day to monitor urine output accurately Ambulate ad hemant. Status: Acute Attestations Medical Necessity Statement*: Laparoscopic cholecystectomy with acute renal failure requiring continued inpatient stay Coding Level of Care Code Acute Cylinder Honer for [facility] Diagnoses Status post laparoscopic cholecystectomy Z90.49 Acute renal failure N17.9
[2019-09-20] MEDS: heparin 5,000 unit/mL INJ 1 mL 5000 UNIT SUBCUT ×2 (17:19→23:07)
[2019-09-20] MEDS: trazodone 50 mg Tablet PO (21:16)
[2019-09-20] MEDS: morphine 4 mg/mL SDV 1 mL 3 MG IVP (22:19)
[2019-09-21] VITALS (7 sets, daily range): BP systolic 130–152; BP diastolic 77–94; PULSE 82–87; RESP 14–19; TEMP 36.8–37.2; O2SAT 93–97
[2019-09-21] MEDS: piperacillin-tazobactam 3.375 GM in sodium chloride 0.9% (plus) 50 ML IV ×2 (03:38→10:59)
[2019-09-21 04:00] LABS: Basophils # 0.1 10^3/uL (0.0-0.1); Basophils % 0.4 %; Eosinophils # 0.3 10^3/uL (0.0-0.8); Eosinophils % 2.2 %; Hematocrit 30.9 % (37.0-47.0); Lymphocytes % 6.6 %; Mean Corpuscular HGB Conc 29.1 g/dL (30.0-36.0); Mean Corpuscular Hemoglobin 27.4 pg (28.0-34.0); Mean Corpuscular Volume 93.9 fL (81-99); Mean Platelet Volume 9.1 fL (7.4-10.4); Monocytes % 6.6 %; Neutrophils # 12.6 10^3/uL (1.8-7.7); Neutrophils % 82.9 %; Nucleated Red Blood Cells % 0 %; Platelet Count 465 10^3/cmm (130-400); Red Blood Count 3.29 10^6/uL (4.1-5.3); White Blood Count 15.2 10^3/uL (4.0-10.0)
[2019-09-21 04:24] LABS: Alanine Aminotransferase 9 U/L (0-33); Albumin Level 2.1 g/dL (3.5-5.2); Alkaline Phosphatase 100 IU/L (35-105); Anion Gap 14.1 (5-19); Aspartate Amino Transferase 14 U/L (0-32); Blood Urea Nitrogen 23 mg/dL (8-23); Calcium 8.5 mg/dL (8.5-10.5); Carbon Dioxide 20 mmol/L (22-29); Chloride 108 mmol/L (98-107); Globulin 4.2 g/dL (1.3-4.6); Glomerular Filtration Rate 27.9 mL/min (90-130); Glucose 93 mg/dL (65-115); Osmolality Calculated 282 mOsm/kg (285-295); Potassium 4.1 mmol/L (3.5-5.1); Sodium 138 mmol/L (136-145); Total Bilirubin 0.8 mg/dL (0.15-1.2); Total Protein 6.3 g/dL (6.6-8.7)
[2019-09-21] MEDS: atenolol 50 mg Tablet PO (09:29)
[2019-09-21] MEDS: heparin 5,000 unit/mL INJ 1 mL 5000 UNIT SUBCUT ×2 (09:29→15:11)
[2019-09-21] MEDS: PARoxetine 20 mg Tablet PO (09:29)
[2019-09-21] MEDS: ropinirole 0.25 mg Tablet 0.5 MG PO ×2 (09:29→15:07)
--- NOTE | 2019-09-21 09:40 | PC.SOCIAL ---
IMM Page 2 of IMM explained to patient. Initialed, dated, and timed and placed in chart. Copy provided to patient.
--- NOTE | 2019-09-21 10:36 | PC.CHAP ---
Pastoral Care Encounter/Spiritual Assessment Type of Contact [] Declined syrup maker visit [] Patient/Family/Request visit [] Outpatient visit [] Follow-up visit [] Physician referral [] Code/Alert [x] Routine visit [] Staff referral [] Actively dying [] Patient sleeping [] Family support [] [] Out of room [] Palliative care [] [x] Receiving care in room [] Pre-surgical visit [] Trauma [] Long length of stay [] ICU visit [] Other: Relational/Emotional Strength [] Patient feels connected with others/family/visitors/staff [x] Distress [] Loneliness/isolation [] Abandonment Spirituality of Patient [x] Person of Paulette [] Attends Christianity of their [place] [x] Believes in Prayer [] Reads Bible or Mu-Ism materials [] There are Spiritual issues to be addressed Certified Nurse Midwife Interventions [x] Prayer [x] Active listening [x] Non-anxious presence [x] Spiritual/emotional support [] Crisis/trauma care [x] Spiritual counseling [] Bereavement support [] Provided bereavement packet [] Provided Bible/devotional materials [] Provided toy/stuffed animal, coloring book to patient or family member [] Provided Communion [] Anointing/[place] [] Salvation [x] Completed spiritual assessment [] Other: Impact on Illness or Injury [] Angry [] Fearful [] Anxious [] Often cries [] Exhaustion [x] Unable to work [] Unable to attend jainism [] Unable to walk/stand [] Unable to read [x] Unable to drive [] Unable to eat/drink [] Unable to sleep [] Unable to be with family [] Patient intubated [] Other: Summary In a lost of pain, doesn't when she can go home, doesn't know about the recovery, waiting on tests, negative attitude. Time spent with patient 10 mins
[2019-09-21] MEDS: HYDROcodone-acetaminophen 5-325 mg Tablet 1 TAB PO (11:55)
--- NOTE | 2019-09-21 11:56 | PC.NURSE ---
Dr Spencer removed patient's NEHA drain.
--- NOTE | 2019-09-21 13:56 | PM.PN ---
Subjective Subjective: Interval history: No acute events overnight. On examination patient is lying comfortably in bed. Saturating 93% on room air. Patient states she is feeling a lot better. Denies of any nausea, vomiting, shortness of breath, cough. Labs and vitals noted. Vitals/I&O/Wt Last Vital Signs Temp 99 F 09/21/19 12:00 Pulse 82 09/21/19 12:00 Resp 14 09/21/19 12:00 BP 143/85 09/21/19 12:00 Pulse Ox 93 09/21/19 12:00 09/20/19 09/21/19 09/21/19 22:59 06:59 14:59 Intake Total 50 / 1180 50 / 1230 170 / 170 Output Total 375 / 405 Balance 20 / 1150 -325 / 825 170 / 170 Physical Exam Const: COMMON NORMALS: no acute distress and patient oriented x3 HENMT: COMMON NORMALS: normocephalic HEAD & SCALP: normocephalic Neck/C-Spine: COMMON NORMALS: no JVD Resp: COMMON NORMALS: normal respiratory effort, No retractions, No use of accessory muscles and clear to auscultation bilaterally AUSCULTATION: clear to auscultation bilaterally Cardio: COMMON NORMALS: no JVD, regular rate, regular rhythm, S1 normal heart sound present and S2 normal heart sound present RATE: regular rate RHYTHM: regular rhythm HEART SOUNDS: S1 normal heart sound present and S2 normal heart sound present GI: COMMON NORMALS: Normal to inspection, nondistended, normoactive bowel sounds present, Soft to palpation, non-tender, no masses and no bruits PALPATION: Yes Soft to palpation OTHER: Surgical site looks clean and dry Extremity: COMMON NORMALS: capillary refill normal, no clubbing, cyanosis or edema, no calf tenderness and no pedal edema Neuro: COMMON NORMALS: patient oriented x3 Psych: COMMON NORMALS: mental status grossly normal Urinary Catheter Management^: Manning: Cath Placed During This Visit: yes, but has since been removed by the nurse Reason for Continuing Indwelling Catheter: Decision to DC Catheter Urinary Catheter Date of Insertion: 09/19/19 Urinary Catheter Time of Insertion: 08:59 Date Urinary Catheter Removed: 09/20/19 Time Urinary Catheter Discontinued: 14:26 Data : 09/21/19 03:45 09/21/19 03:45 Micro: Microbiology 09/20/19 14:00 MRSA Culture - Final Nose 09/17/19 18:19 Urine Culture - Final Urine,Clean Catch Klebsiella pneumoniae A&P Assessment and plan (1) Status post laparoscopic cholecystectomy: -Postop day #3 -Pain control and anticoagulation as per surgical team -Currently on Zosyn Status: Acute (2) Acute renal failure: -Multifactorial likely related to underlying hypertensive nephropathy, NSAID use, cholecystitis, postoperative status, prerenal azotemia. On review of chart most likely no sepsis on admission. Creatinine trending down. FeNa: 0.7, prerenal Renal ultrasound consistent with possible medical renal disease most likely because of chronic hypertension, NSAID use. Have encouraged patient to continue taking oral liquids liberally even at home on discharge. Status: Acute (3) Hypertension: Continue home dose of atenolol twice daily. Goal blood pressure less than 140/90 mmHg. If required can add low-dose amlodipine. For now we will continue to monitor. Status: Acute Qualifiers: Hypertension type: essential hypertension Qualified Code(s): I10 - Essential (primary) hypertension (4) UTI due to Klebsiella species: [place] Manning. Klebsiella pansensitive other than nitrofurantoin. Patient is on Zosyn for now. Day 3 today. Zosyn will also cover for Klebsiella. Can most likely discharge on oral levofloxacin for Klebsiella UTI to finish a course of 5 days on discharge. Status: Acute Additional A&P Information Shortness of breath: Resolved. Most likely because of mild fluid overload overload. Maintaining more than 93% on room air. Chest x-ray negative for any infiltrate. Case discussed with Dr. Spencer. Patient medically stable to be discharged. Patient can most likely go on levofloxacin which would cover both for post laparoscopy cholecystectomy status and Klebsiella UTI. Patient should check CMP in a week with a primary care provider. Given creatinine clearance patient should take levofloxacin 750 mg every other day. The above instructions were discussed with patient's daughter Ms. Green. She verbalized understanding and was able to save back as well. Attestations Medical Necessity Statement*: As per primary team. Time Spent in Patient Care: Greater than 35 minutes (>than 50% of time spent in counselling and/or direct pt care on unit). Coding Level of Care Code Acute Promotions Assistant Sales Marketing for [facility] Exam Comprehensive Diagnoses Status post laparoscopic cholecystectomy Z90.49 Acute renal failure N17.9 Hypertension I10 Hypertension type: essential hypertension UTI due to Klebsiella species N39.0; B96.89
--- NOTE | 2019-09-21 16:53 | PM.PN ---
Subjective Subjective: Interval history: Patient denies any nausea or vomiting, keen to go home today Vitals/I&O/Wt Last Vital Signs Temp 99 F 09/21/19 15:42 Pulse 82 09/21/19 15:42 Resp 14 09/21/19 15:42 BP 143/85 09/21/19 15:42 Pulse Ox 93 09/21/19 15:42 09/21/19 09/21/19 09/21/19 06:59 14:59 22:59 Intake Total 50 / 1230 170 / 170 Output Total 375 / 405 Balance -325 / 825 170 / 170 Physical Exam Narrative: EXAM NARRATIVE: Abdomen: Soft, nondistended, normally tender, incision clean dry and intact, NEHA drain output serosanguineous which was removed today Urinary Catheter Management^: Manning: Cath Placed During This Visit: yes, but has since been removed by the nurse Reason for Continuing Indwelling Catheter: Decision to DC Catheter Urinary Catheter Date of Insertion: 09/19/19 Urinary Catheter Time of Insertion: 08:59 Date Urinary Catheter Removed: 09/20/19 Time Urinary Catheter Discontinued: 14:26 Data : 09/21/19 03:45 09/21/19 03:45 Micro: Microbiology 09/20/19 14:00 MRSA Culture - Final Nose A&P Assessment and plan (1) Status post laparoscopic cholecystectomy: We will discharge her home today on oral Levaquin and Flagyl both for the UTI as well as for the perforated gallbladder Follow-up 1 week Status: Acute Attestations Medical Necessity Statement*: DC home today Coding Level of Care Code Acute Upholstery Department Supervisor for [facility] Diagnoses Status post laparoscopic cholecystectomy Z90.49
--- NOTE | 2019-09-21 16:55 | P.DS_ITS ---
Discharge Providers Date of Admission: 09/18/19 10:35 Date of Discharge: September 21, 2019 Attending Provider at Admission: Sebastian Spencer MD Attending Provider at Discharge: Sebastian Spencer MD Primary Care Provider: Regino Smith MD Diagnoses at Discharge Discharge Diagnosis (1) Status post laparoscopic cholecystectomy: Status: Acute Reason for Visit Reason for Visit: abd pain Hospital Course Discharge Summary: This is 69-year-old female who presented to the ER with right upper quadrant pain and acute cholecystitis was diagnosed. Patient underwent laparoscopic cholecystectomy. During surgery she was noted to have perforated gallbladder with large amount of pus in the abdomen. She was therefore kept in the hospital for IV antibiotics. She also developed acute renal failure secondary to sepsis. She was noted to have a Klebsiella UTI. At time of discharge her creatinine and white count was improving. Patient denies any nausea or vomiting and is tolerating a regular diet. Her vital signs are stable. Her incisions are clean dry and intact Physical Exam Urinary Catheter Management^: Manning: Cath Placed During This Visit: yes, but has since been removed by the nurse Reason for Continuing Indwelling Catheter: Decision to DC Catheter Urinary Catheter Date of Insertion: 09/19/19 Urinary Catheter Time of Insertion: 08:59 Date Urinary Catheter Removed: 09/20/19 Time Urinary Catheter Discontinued: 14:26 Discharge Data Data Completed and Pending: Completed Studies During Hospitalization Category Date Time Status CT abdomen pelvis w con* [id number] Urge nt Cat Scan 09/17/19 18:25 Completed XR chest 1V seth ble [id number] Routine Exams 09/20/19 13:43 Completed Pathology: Surgic al [PTH] Routine Pth 09/18/19 09:40 Completed US gall bladder 7 [id number] Urgent Ultrasound 09/17/19 15:35 Completed US renal BI* [id number] Routine Ultrasound 09/19/19 09:31 Completed Pending at discharge Category Date Time Status ES surgery / GI i mages Routine Exams 09/18/19 07:22 Taken Labs from last 24 hours 09/21/19 09/21/19 03:45 03:45 WBC 15.2 H RBC 3.29 L Hgb 9.0 L Hct 30.9 L MCV 93.9 MCH 27.4 L MCHC 29.1 L RDW 15.0 Plt Count 465 H MPV 9.1 Neut % (Auto) 82.9 Lymph % (Auto) 6.6 [place] % (Auto) 6.6 Eos % (Auto) 2.2 Baso % (Auto) 0.4 Neut # (Auto) 12.6 H Lymph # (Auto) 1.0 [place] # (Auto) 1.0 H Eos # (Auto) 0.3 Baso # (Auto) 0.1 Nucleated RBC % (a uto) 0 Nucleated RBCs # 0.0 Sodium 138 Potassium 4.1 Chloride 108 H Carbon Dioxide 20 L Anion Gap 14.1 BUN 23 Creatinine 1.8 H GFR Calculation 27.9 L Glucose 93 Calculated Osmolal ity 282 L Calcium 8.5 Total Bilirubin 0.8 AST 14 ALT 9 Alkaline Phosphata se 100 Total Protein 6.3 L Albumin 2.1 L Globulin 4.2 Vitals: Last Vital Signs Temp 99 F 09/21/19 15:42 Pulse 82 09/21/19 15:42 Resp 14 09/21/19 15:42 BP 143/85 09/21/19 15:42 Pulse Ox 93 09/21/19 15:42 Discharge Plan Discharge Patient Disposition: Home, Self-Care Condition: Stable Prescriptions: New Zofran 4 mg tablet 4 mg PO Q6H PRN (Reason: nausea and vomiting) Qty: 20 RF: 0 Flagyl 500 mg tablet 500 mg PO Q8H 7 Days Qty: 21 RF: 0 Colace 100 mg capsule 100 mg PO BID Qty: 30 RF: 0 Levaquin 750 mg tablet 750 mg PO DAILY 7 Days RF: 0 Continued trazodone 50 mg tablet 50 mg PO BEDTIME RF: 0 ropinirole 0.5 mg tablet 0.5 mg PO TID RF: 0 tramadol 50 mg tablet 50 mg PO BID PRN (Reason: paim) RF: 0 paroxetine HCl 20 mg tablet 20 mg PO DAILY RF: 0 atenolol 25 mg tablet 50 mg PO BID RF: 0 hydrocodone-acetaminophen 5-325 mg tablet 1 tab PO Q6H PRN (Reason: Pain) RF: 0 Zofran 4 mg tablet 4 mg PO DAILY PRN (Reason: Nausea) RF: 0 Discharge Orders: Discharge Order (Routine); Ordered 09/21/19 Ordered By: Sebastian Spencer Referrals: Sebastian Spencer MD [Physician] - 10/06/19 1:45 pm Discharge Diet: Regular Patient Instructions: Metronidazole (By mouth), Laxative, Stool Softeners (By mouth), Ondansetron (By mouth), Levofloxacin (By mouth), Urinary Tract Infection in Women (DC), Renal Failure Diet (DC), Laparoscopic Cholecystectomy (DC) Activity Restrictions/Additional Instructions: 1. Up and walking as tolerated. 2. Ok to shower in 48 hours after surgery. 3. Remove Dermabond dressing in 7-10 days. 4. Do not lift more than 10 pounds. 5. Do not operate heavy machinery or drive while using pain medications. 6. Advised to return to ER or contact my office if there are any signs of infection like, increasing pain, fevers, chills, redness or drainage of pus. Discharge Attestations Time Spent in Discharge Care*: less than 30 min Quality Metrics Clinical Quality Measures During this hospital stay, did patient experience: None Coding Level of Care Code Acute Hole Puncher Strap for Shelli Ybarra Diagnoses Status post laparoscopic cholecystectomy Z90.49
--- NOTE | 2019-09-21 16:57 | PC.NURSE ---
patient given discharge instructions and verbalized understanding of instructions. patient dressed and waiting on family for ride home.
== END 2019-09-21 17:09 | disposition home or self-care (01) | DRG 417 ==
LOC: ER 17:14 → MEDSURG 22:34
PROVIDERS: Emergency Medicine; Family Medicine; Student in an Organized Health Care Education/Training Program; Admitting Provider Surgery; PCP Family Medicine; Visit Provider Surgery
PROC: 0FT44ZZ Resection of Gallbladder, Percutaneous Endoscopic Approach (ICD-10-PCS; CPT 47562; principal; 2019-09-18 08:00)
DX: K80.00 Calculus of gallbladder with acute cholecystitis without obstruction (principal); A41.9 Sepsis, unspecified organism; N17.9 Acute kidney failure, unspecified; N39.0 Urinary tract infection, site not specified; K82.A2 Perforation of gallbladder in cholecystitis; B96.1 Klebsiella pneumoniae [K. pneumoniae] as the cause of diseases classified elsewhere; I10 Essential (primary) hypertension; F32.9 Major depressive disorder, single episode, unspecified
CPT/HCPCS: 12345; 36415; 36416; 51702; 71045; 74177; 76705; 76770; 80053; 81001; 82570; 82962; 83605; 83690; 84300; 84484; 85025; 85999; 87077; 87086; 87186; 87641; 88304; 93005; 96372; 96375; 99284; G0378; J0131; J1100; J1170; J1644; J1885; J2270; J2405; J2543; J2550; J2704; J2710; J3010; J3490; J7030; Q9967

== ENCOUNTER 2020-09-27 12:58 | Outpatient (CLI) | payer MEDICARE, SELFPAY ==
--- NOTE | 2020-09-27 13:03 | XR_ITS ---
WS: [id number] SCREENING DEXA SCAN [facility] CLINICAL INFORMATION: POST MENOPAUSAL COMPARISON: FINDINGS: The L1-L4 bone mineral density measures 0.974 g/cm2. This corresponds to a T score score of -1.7 and Z score of -1.2. Left femoral neck bone mineral density measures 0.872 g/cm2. This corresponds to a T score of -1.1 an d Z score of -0.4. Right femoral neck bone mineral density measures 0.864 g/cm2. This corresponds to a T score -1.1of an d Z score of -0.5. Mean femoral neck bone mineral density measures 0.868 g/cm2. This corresponds to a T score of -1.1 an d Z score of -0.5. XR/XR DEXA axial skeleton* [id number] IMPRESSION: Osteopenia Patient's FRAX calculated 10 year probability for major osteoporotic fracture i s 14.6 % and osteoporotic hip fracture is 1.9%.
--- NOTE | 2020-09-27 13:32 | MM_ITS ---
WS: [id number] BILATERAL SCREENING DIGITAL MAMMOGRAM WITH CAD HISTORY: SCREENING COMPARISON: 03/12/2018 Bilateral CC and MLO views submitted. Computer aided detection analyzed. Breast composition: There are scattered areas of fibroglandular density. No suspicious masses, microc alcifications or architectural distortion. MM/[place] [id number] IMPRESSION: BI-RADS: 2-Benign FOLLOW UP: 1 Year Follow-up
== END 2020-09-27 12:59 | disposition home or self-care (01) ==
PROVIDERS: PCP Family Medicine; Visit Provider Family Medicine
DX: Z12.31 Encounter for screening mammogram for malignant neoplasm of breast (principal); Z78.0 Asymptomatic menopausal state; M85.88 Other specified disorders of bone density and structure, other site
CPT/HCPCS: 77067; 77080

== ENCOUNTER 2024-01-29 12:27 | Outpatient (CLI) | payer MEDICARE, SELFPAY ==
--- NOTE | 2024-01-29 12:29 | MM_ITS ---
WS: [id number] BILATERAL SCREENING DIGITAL TOMOSYNTHESIS MAMMOGRAM WITH CAD HISTORY: SCREENING COMPARISON: 09/27/2020, 03/12/2018 Bilateral CC and MLO views with tomosynthesis and synthetic mammography submitted. Computer aided det ection analyzed. Breast composition: The breasts are heterogeneously dense, which may obscure small masses. No suspici ous masses, microcalcifications or architectural distortion. Bilateral scattered calcifications. MM/MM scr BI tomosynthesis [id number] IMPRESSION: BI-RADS: 2 - Benign FOLLOW UP: 1 Year Follow-up
--- NOTE | 2024-01-29 12:29 | XR_ITS ---
WS: [id number] DEXA (DUAL ENERGY X-RAY ABSORPTIOMETRY) Bone mineral density was performed using a [employer] machine. HISTORY: SCREENING COMPARISON: 09/27/2020 Lumbar spine BMD (L1-L4): 1.047 g/cm2 T score: -1.1 Z score: -0.5 Total hip BMD: Left: 0.869 g/cm2. T score: -1.1 Z score: -0.2 Right: 0.834 g/cm2. T score: -1.4 Z score: -0.5 10 year probability of a major osteoporotic fracture is 16.4%. Compared to the prior study from 09/27/2020. Lumbar spine bone mineral density has increased by 7.5%. Bilateral hips bone mineral density has decreased by 1.8%. XR/XR DEXA axial skeleton* [id number] IMPRESSION: OSTEOPENIA based upon the WHO classification for females. Significant increase in bone mineral density in the lumbar spine since the prio r exam. No change in the hips.
== END 2024-01-29 12:28 | disposition home or self-care (01) ==
LOC: RAD 12:28
PROVIDERS: PCP Family Medicine; Visit Provider Family Medicine
DX: Z12.31 Encounter for screening mammogram for malignant neoplasm of breast (principal); R92.333 Mammographic heterogeneous density, bilateral breasts; R92.1 Mammographic calcification found on diagnostic imaging of breast; Z13.820 Encounter for screening for osteoporosis; M85.80 Other specified disorders of bone density and structure, unspecified site; Z78.0 Asymptomatic menopausal state
CPT/HCPCS: 77063; 77067; 77080

== ENCOUNTER 2024-07-09 18:01 | Emergency (ER) | payer MEDICARE, SELFPAY ==
[2024-07-09 18:12] VITALS: BP 123/60; PULSE 91; RESP 18; TEMP 36.1; O2SAT 95
--- NOTE | 2024-07-09 19:07 | XRR_ITS ---
PROCEDURE INFORMATION: Exam: XR Right Wrist Exam date and time: 07/09/2024 7:12 PM Age: 74 years old Clinical indication: Injury or trauma; Fall; Fracture, traumatic injury; Closed fracture; Wrist; Right TECHNIQUE: Imaging protocol: Radiologic exam of the right wrist. Views: 3 or more views. COMPARISON: No relevant prior studies available. FINDINGS: Bones/joints: Acute predominant transverse fracture seen within the distal metaphysis of the right radius. AP view demonstrates mild cortical offset deformity with mild medial deviation of the proximal fracture fragment toward the ulna in relation to the distal fracture fragment. Lateral view demonstrates significant angulation deformity at the fracture site, with ventral position of the proximal fracture fragment in relation to the distal fracture fragment. No other fracture is seen about the right wrist. Wrist joint appears maintained. Soft tissues: Extensive soft tissue swelling. XR/XR wrist RT min 3V* [id number] IMPRESSION: Angulated fracture distal metaphysis right radius at the wrist as noted above, with associated extensive soft tissue swelling.
--- NOTE | 2024-07-09 19:47 | W.ED.EXTPRO ---
Documented by User: MATHEW Alexis 07/09/24 21:04 HPI - Extremity Problem General: Chief complaint: Extremity Injury, Upper Stated complaint: Broken R arm Referral From [facility] Time Seen by Provider: 07/09/24 19:17 History of Present Illness: 74-year-old female comes in today for evaluation of injury to the right wrist. Patient was walking up an embankment when she tripped and fell catching herself with outstretched arm. Patient was first seen at [facility] and they referred her to the ER for further treatment of her radial wrist fracture. Related Data Home Medications ?Medication ?Instructions ?Recorded ?Confirmed atenolol 25 mg tablet 50 mg PO BID 09/12/19 10/05/19 paroxetine HCl 20 mg tablet 20 mg PO DAILY 09/12/19 10/05/19 ropinirole 0.5 mg tablet 0.5 mg PO TID 09/12/19 10/05/19 tramadol 50 mg tablet 50 mg PO BID PRN paim 09/12/19 10/05/19 trazodone 50 mg tablet 50 mg PO BEDTIME 09/12/19 10/05/19 hydrocodone 5 mg-acetaminophen 325 1 tab PO Q6H PRN Pain 09/17/19 10/05/19 mg tablet ondansetron HCl 4 mg tablet 4 mg PO DAILY PRN Nausea 09/17/19 09/17/19 (Zofran) Previous Rx's ?Medication ?Instructions ?Recorded docusate sodium 100 mg capsule 100 mg PO BID #30 caps 09/21/19 (Colace) ondansetron HCl 4 mg tablet 4 mg PO Q6H PRN nausea and 09/21/19 (Zofran) vomiting #20 tabs hydrocodone 5 mg-acetaminophen 325 1 tab PO Q6H PRN pain #14 tabs 07/09/24 mg tablet Allergies Allergy/AdvReac Type Severity Reaction Status Date / Time No Known Allergies Allergy Verified 07/09/24 18:17 Review of Systems General: Reports: 10 or more systems reviewed and unremarkable except in HPI and below Musc: Reports: other (Deformity right radial wrist.) [facility] ED PFSH: Medical History (Updated 07/09/24 @ 20:59 by Mandeep Mendoza MD) Hypertension Depression Surgical History Status post laparoscopic cholecystectomy (09/18/19) S/P hysterectomy S/P tubal ligation Family History Mother Cancer Denies family history of Diabetes CAD (coronary artery disease) Anesthesia complication Bleeding disorder Social History Smoking and tobacco/nicotine status: never used tobacco/nicotine Alcohol intake: never Substance/Drug Use: never Household members: spouse Marital status: Current occupational status: retired Physical Exam Const: COMMON NORMALS: alert HENMT: COMMON NORMALS: normocephalic HEAD & SCALP: normocephalic Neck/C-Spine: COMMON NORMALS: full ROM Chest: COMMONS NORMALS: normal inspection of the chest Resp: COMMON NORMALS: normal respiratory effort Cardio: COMMON NORMALS: regular rate RATE: regular rate GI: COMMON NORMALS: non-tender Extremity: RIGHT UPPER EXTREMITY: Yes upper arm and Yes wrist (Hematoma and deformity noted at the wrist.) Neuro: SENSORIUM/ORIENTATION: Yes alert Skin: COMMON NORMALS: turgor normal GENERAL SKIN EXAM: turgor normal Course Vital Signs: Vital signs: Vital Signs Temperature 97.0 F L 07/09/24 18:12 Pulse Rate 71 07/09/24 20:16 Respiratory Rate 16 07/09/24 20:16 Blood Pressure 122/56 07/09/24 20:16 Pulse Oximetry 100 07/09/24 20:16 Oxygen Delivery Me thod Nasal Cannula 07/09/24 20:16 Oxygen Flow Rate 2 07/09/24 20:16 MDM - Extremity (Nontraumatic) Medical Decision Making Patient comes in today for injury to the right wrist. Patient reports fall injury while fishing. Patient has a obvious deformity to the right wrist. Cap refill and sensation is intact distally. Differential fracture, dislocation, sprain. X-ray notes a right radial fracture with displacement dorsally. Reviewed patient with Dr. Mendoza who agreed to reduce the fracture. Lab Data Radiology Impressions Wrist X-Ray 07/09/24 19:07 IMPRESSION: Angulated fracture distal metaphysis right radius at the wrist as noted above, with associated extensive soft tissue swelling. Discharge Plan Discharge Patient Disposition: Home Clinical Impression: Fracture of wrist Condition: Stable Prescriptions: New hydrocodone-acetaminophen 5-325 mg tablet 1 tab PO Q6H PRN (Reason: pain) Qty: 14 0RF No Action trazodone 50 mg tablet 50 mg PO BEDTIME ropinirole 0.5 mg tablet 0.5 mg PO TID tramadol 50 mg tablet 50 mg PO BID PRN (Reason: paim) paroxetine HCl 20 mg tablet 20 mg PO DAILY atenolol 25 mg tablet 50 mg PO BID Rx Instructions: dose change hydrocodone-acetaminophen 5-325 mg tablet 1 tab PO Q6H PRN (Reason: Pain) Zofran 4 mg tablet 4 mg PO DAILY PRN (Reason: Nausea) Zofran 4 mg tablet 4 mg PO Q6H PRN (Reason: nausea and vomiting) Qty: 20 0RF Colace 100 mg capsule 100 mg PO BID Qty: 30 0RF Discharge Orders: Discharge ED (Routine); Ordered 07/09/24 Ordered By: Mandeep Mendoza Referrals: Helio Paul DO [Physician] - 4-7 days Regino Smith MD [Primary Care Provider] - Discharge Diet: Advance as tolerated Discharge Activity: Resume usual activity Patient Instructions: Wrist Fracture in Adults (ED), Opioid Safety Print Language: Salvadorean Coding Level of Care Code ED Life Enrichment Specialist for Chg Fwd Documented by User: Mandeep Mendoza MD 07/09/24 21:01 HPI - Extremity Problem General: Chief complaint: Extremity Injury, Upper Stated complaint: Broken R arm Referral From [facility] Seen by Provider: 07/09/24 19:17 Related Data Home Medications ?Medication ?Instructions ?Recorded ?Confirmed atenolol 25 mg tablet 50 mg PO BID 09/12/19 10/05/19 paroxetine HCl 20 mg tablet 20 mg PO DAILY 09/12/19 10/05/19 ropinirole 0.5 mg tablet 0.5 mg PO TID 09/12/19 10/05/19 tramadol 50 mg tablet 50 mg PO BID PRN paim 09/12/19 10/05/19 trazodone 50 mg tablet 50 mg PO BEDTIME 09/12/19 10/05/19 hydrocodone 5 mg-acetaminophen 325 1 tab PO Q6H PRN Pain 09/17/19 10/05/19 mg tablet ondansetron HCl 4 mg tablet 4 mg PO DAILY PRN Nausea 09/17/19 09/17/19 (Zofran) Previous Rx's ?Medication ?Instructions ?Recorded docusate sodium 100 mg capsule 100 mg PO BID #30 caps 09/21/19 (Colace) ondansetron HCl 4 mg tablet 4 mg PO Q6H PRN nausea and 09/21/19 (Zofran) vomiting #20 tabs hydrocodone 5 mg-acetaminophen 325 1 tab PO Q6H PRN pain #14 tabs 07/09/24 mg tablet Allergies Allergy/AdvReac Type Severity Reaction Status Date / Time No Known Allergies Allergy Verified 07/09/24 18:17 [facility] ED PFSH: Medical History (Updated 07/09/24 @ 20:59 by Mandeep Mendoza MD) Hypertension Depression Surgical History Status post laparoscopic cholecystectomy (09/18/19) S/P hysterectomy S/P tubal ligation Family History Mother Cancer Denies family history of Diabetes CAD (coronary artery disease) Anesthesia complication Bleeding disorder Social History Smoking and tobacco/nicotine status: never used tobacco/nicotine Alcohol intake: never Substance/Drug Use: never Household members: spouse Marital status: Current occupational status: retired Procedures Orthopedic Fracture Reduction Fracture #1: Time Out Performed: Yes Side: right Fracture Reduction Location: radius Analgesia: procedural sedation Technique: direct manipulation Post Reduction X-rays Demonstrate: anatomical reduction Post-reduction neuro exam: intact Post-reduction vascular exam: intact Splint Applied: Yes Patient Tolerated Procedure: well Procedural Sedation Indication: fracture/dislocation reduction ASA Class: I Time of Last PO Intake: 17:00 Preparation: monitoring manager applied and pulse oximeter IV Propofol dose (mg): 40 Patient Tolerated Procedure: well Complications: none Course Vital Signs: Vital signs: Vital Signs Temperature 97.0 F L 07/09/24 18:12 Pulse Rate 71 07/09/24 20:16 Respiratory Rate 16 07/09/24 20:16 Blood Pressure 122/56 07/09/24 20:16 Pulse Oximetry 100 07/09/24 20:16 Oxygen Delivery Me thod Nasal Cannula 07/09/24 20:16 Oxygen Flow Rate 2 07/09/24 20:16 MDM - Extremity (Nontraumatic) Lab Data Radiology Impressions Wrist X-Ray 07/09/24 19:07 IMPRESSION: Angulated fracture distal metaphysis right radius at the wrist as noted above, with associated extensive soft tissue swelling. All radiology interpretation(s) finalized by discharge Discharge Plan Discharge Patient Disposition: Home Clinical Impression: Fracture of wrist Condition: Stable Prescriptions: New hydrocodone-acetaminophen 5-325 mg tablet 1 tab PO Q6H PRN (Reason: pain) Qty: 14 0RF No Action trazodone 50 mg tablet 50 mg PO BEDTIME ropinirole 0.5 mg tablet 0.5 mg PO TID tramadol 50 mg tablet 50 mg PO BID PRN (Reason: paim) paroxetine HCl 20 mg tablet 20 mg PO DAILY atenolol 25 mg tablet 50 mg PO BID Rx Instructions: dose change hydrocodone-acetaminophen 5-325 mg tablet 1 tab PO Q6H PRN (Reason: Pain) Zofran 4 mg tablet 4 mg PO DAILY PRN (Reason: Nausea) Zofran 4 mg tablet 4 mg PO Q6H PRN (Reason: nausea and vomiting) Qty: 20 0RF Colace 100 mg capsule 100 mg PO BID Qty: 30 0RF Discharge Orders: Discharge ED (Routine); Ordered 07/09/24 Ordered By: Mandeep Mendoza Referrals: Helio Paul DO [Physician] - 4-7 days Regino Smiht MD [Primary Care Provider] - Discharge Diet: Advance as tolerated Discharge Activity: Resume usual activity Patient Instructions: Wrist Fracture in Adults (ED), Opioid Safety Print Language: Salvadorean Coding Level of Care Code ED Life Enrichment Specialist for Shelli Ybarra
[2024-07-09 20:16] VITALS: BP 122/56; PULSE 71; RESP 16; O2SAT 100
--- NOTE | 2024-07-09 20:32 | XRR_ITS ---
PROCEDURE INFORMATION: Exam: XR Right Wrist Exam date and time: 07/09/2024 8:39 PM Age: 74 years old Clinical indication: Screening exam; Post reduction TECHNIQUE: Imaging protocol: Radiologic exam of the right wrist. Views: 1 or 2 views. COMPARISON: CR (UP EXM, ) 07/09/2024 7:12 PM FINDINGS: Tubes, catheters and devices: Overlying splint cast noted. Bones/joints: Postreduction views demonstrates satisfactory alignment and position about previously noted angulated fracture within the distal metaphysis of the right radius indicating successful reduction. Wrist joint appears maintained. Soft tissues: Normal. XR/XR wrist RT 2V [id number] IMPRESSION: Successful reduction of previous angulated fracture within the distal metaphysis of the right radius. Overlying splint cast.
[2024-07-09] MEDS: propofol 10 mg/mL SDV 20 mL 100 MG IVP (20:56)
[2024-07-09 21:10] VITALS: BP 135/74; PULSE 71; O2SAT 99
[2024-07-09] MEDS: HYDROcodone-acetaminophen 5-325 mg Tablet 2 TAB PO (21:13)
--- NOTE | 2024-07-12 07:09 | DCPLANNER ---
messaged ortho for er f/u
== END 2024-07-09 21:27 | disposition home or self-care (01) ==
PROVIDERS: Emergency Provider Emergency Medicine; PCP Family Medicine
DX: S52.591A Other fractures of lower end of right radius, initial encounter for closed fracture (principal); I10 Essential (primary) hypertension; W01.0XXA Fall on same level from slipping, tripping and stumbling without subsequent striking against object, initial encounter
CPT/HCPCS: 73100; 73110; 99285; J2704; J9999

== ENCOUNTER → 2024-07-13 07:55 | Outpatient (BNVA) | payer MEDICARE, SELFPAY | PROVIDERS: PCP Family Medicine; Visit Provider Orthopaedic Surgery | DX: Z01.818 Encounter for other preprocedural examination (principal); S52.591A Other fractures of lower end of right radius, initial encounter for closed fracture; W01.0XXA Fall on same level from slipping, tripping and stumbling without subsequent striking against object, initial encounter; S62.101A Fracture of unspecified carpal bone, right wrist, initial encounter for closed fracture | CPT/HCPCS: 36415; 73110; 80053; 81001; 85025; 87086; 99204 ==

== ENCOUNTER 2024-07-13 10:39 | Outpatient (CLI) | payer MEDICARE, SELFPAY | END 2024-07-13 10:40 | disposition home or self-care (01) | LOC: SPT 10:40 | PROVIDERS: PCP Family Medicine; Visit Provider Orthopaedic Surgery | DX: Z46.89 Encounter for fitting and adjustment of other specified devices (principal); S52.591D Other fractures of lower end of right radius, subsequent encounter for closed fracture with routine healing; X58.XXXD Exposure to other specified factors, subsequent encounter | CPT/HCPCS: L3908 ==

== ENCOUNTER 2024-07-14 10:53 | Day surgery (SDC) | payer MEDICARE, SELFPAY ==
[2024-07-14] VITALS (8 sets, daily range): BP systolic 117–154; BP diastolic 61–80; PULSE 82–103; RESP 16–18; TEMP 36.1–36.6; O2SAT 92–99; BMI 32.5
[2024-07-14] MEDS: sodium chloride 0.9% 1,000 ML 30 ML IV (11:56)
--- NOTE | 2024-07-14 13:11 | W.PM.OPSUD ---
Surgery/Procedure H&P Update DATE OF PROCEDURE: July 14, 2024 DATE H&P PERFORMED: 07/13/24 H&P UPDATE INFORMATION: I have reviewed H&P completed within last 30 days, I have examined patient prior to procedure and No changes to prior documentation PREOP DIAGNOSIS: Right distal radius fracture PLANNED PROCEDURE: Operation Date: 07/14/24 12:25 Proposed Procedures p ORIF Wrist ORIF Distal Radius(Right) - Helio Paul DO
--- NOTE | 2024-07-14 13:16 | ANES.PREANE2 ---
Pre-Anesthetic Assessment Height/Weight: Height 5 ft 9 in Weight 220 lb O2 Del Method Room Air 07/14/24 11:30 Preop Diagnosis: Right distal radius fracture Operation Date: 07/14/24 12:25 Proposed Procedures p ORIF Wrist ORIF Distal Radius(Right) - Helio Paul, DO Was Beta Parker taken within 24 hours: N/A Was Clonidine taken within 24 hours: N/A Last intake: Intake Last Liquid Date 07/13/24 Last Liquid Time 11:00 Last Solid Date 07/13/24 Last Solid Time 20:00 Social No alcohol and No tobacco Exam alert, oriented x 3, clear to auscultation bilaterally and regular rate & rhythm Airway Submandibular: within normal limits Cervical ROM: within normal limits Mallampati: Class III Dentition: full Anesthetic Plan ASA status: 2 Anesthesia: MAC Other: No prior issues with anesthesia NPO since yesterday History of hypertension on atenolol UTI noted on UA, started on antibiotics yesterday Chronic CKD, no dialysis Labs reviewed and acceptable for procedure Plan for preop nerve block with possible MAC or general Medications/Allergies Home Medications ?Medication ?Instructions ?Recorded ?Confirmed ?Last Taken ?Type atenolol 25 mg tablet 50 mg PO BID 09/12/19 07/13/24 07/14/24 History paroxetine HCl 20 mg tablet 20 mg PO DAILY 09/12/19 07/13/24 07/13/24 History tramadol 50 mg tablet 50 mg PO BID PRN paim 09/12/19 07/13/24 09/10/19 History OTC right wrist brace #1 ea 07/13/24 07/13/24 Unknown Rx sulfamethoxazole 800 1 tab PO BID #20 tabs 07/13/24 07/13/24 Unknown Rx mg-trimethoprim 160 mg tablet (Bactrim DS) Allergies Allergy/AdvReac Type Severity Reaction Status Date / Time No Known Allergies Allergy Verified 07/13/24 12:30 Current Medications Generic Name Dose Route Start Last Admin Trade Name Freq PRN Reason Stop Dose Admin Sodium Chloride 1,000 mls @ 30 mls/hr 07/14/24 11:15 07/14/24 11:56 Sodium Chloride 0.9% IV 07/15/24 11:14 30 mls/hr .Q24H DANA Administration PFS Anesthesia Medical History (Updated 07/09/24 @ 20:59 by Mandeep Mendoza MD) Hypertension Depression Surgical History Status post laparoscopic cholecystectomy (09/18/19) S/P hysterectomy S/P tubal ligation Family History Mother Cancer Denies family history of Diabetes CAD (coronary artery disease) Anesthesia complication Bleeding disorder Social History Smoking and tobacco/nicotine status: never used tobacco/nicotine Alcohol intake: never Substance/Drug Use: never Household members: spouse Marital status: Current occupational status: retired Data Anesthesia Cardiac Studies: No Data to Display
--- NOTE | 2024-07-14 13:20 | ANES.PROC ---
Anesthesia Procedures Procedure/Date: 07/14/24 Nerve Block ^: Nerve Block 1: Main Anesthesia: other (100 mcg fentanyl) Time Out Performed: Yes Consent: requested by attending/covering physician and from patient Nerve block location: supraclavicular Anesthesia monitors applied: pulse oximetry, EKG, BP cuff and oxygen Nerve block position: supine Anesthetic Used: ropivicaine 0.5% Amount of anesthesia used (mL): 30 Ultrasound used to: recognize landmarks Nerve Stimulator Used?: Yes Interscalene/Femoral BLK: other needle (pjunk) Injection: neg aspiration of heme Patient Tolerated Procedure: well Complications: none Additional Comments: Decadron 4 mg added block
[2024-07-14] MEDS: ceFAZolin 2,000 mg SDV 2000 MG IVP (13:33)
--- NOTE | 2024-07-14 13:38 | SUR.PREOP ---
13:00 RIGHT INTERSCALENE NERVE BLOCK PERFORMED BY DOCTOR GAYTAN. PT ON MONITOR SHOWING NSR. O2 AT2L/M VIA NASAL CANNULA. 30ml OF 0.5% ROPIVACAINE WITH 4mg OF DECADRON USED. PT TOLERATED PROCEDURE WELL.
--- NOTE | 2024-07-14 14:45 | PM.OP ---
Operative Report Date of procedure: July 14, 2024 Pre-op diagnosis: Right extra-articular distal radius fracture. Post-op diagnosis: same Procedure done: Open reduction internal fixation of right distal radius fracture extra-articular Surgeon: Helio Paul DO Estimated blood loss (mL): 5 Procedure: Open reduction internal fixation of right distal radius fracture extra-articular Patient is brought to the operative suite after undergoing anesthesia was placed in the supine position. All areas impingement well-padded. Patient's prepped draped no sterile fashion. Skin incisions made over the volar aspect of the wrist. The flexor carpi radialis was identified reflected ulnarly radial artery was identified and reflected only the pronator quadratus was reflected off ulnarly.. Fracture was identified reduced with a pointed point reduction clamp. Then a distal radius plate from [employer] was placed volarly. 4 screws were placed distally 2 screws placed proximally AP and lateral fluoroscopy ensured the fracture was reduced and the hardware was in good position. Wounds were irrigated and closed with Vicryl and nylon suture. Sterile dressings were applied patient was placed in a volar splint and transferred to the PACU in stable condition.
--- NOTE | 2024-07-14 14:46 | XR_ITS ---
WS: [id number] Exam: XR wrist RT 2V [id number] Date/Time of Exam: 07/14/2024 2:46 PM Reason For Exam: orif, or pic Comparison 07/13/2024. Intraoperative AP and lateral C-arm images are submitted. Images depict volar plate and screw fixation involving a fracture of the distal radius. Alignment appears satisfactory.
--- NOTE | 2024-07-14 15:19 | SUR.PHASEII ---
INDIRECT HEAT APPLIED.
--- NOTE | 2024-07-14 16:25 | ANE.PACU2 ---
Inpatient post-anesthesia follow up: Airway intact: Yes Vital signs: Temperature 97.9 F Pulse Rate 99 Respiratory Rate 16 Blood Pressure 123/74 Pulse Oximetry 95 Oxygen Delivery Me thod Room Air Oxygen Flow Rate 6 Fraction of Inspir ed Oxygen Hydration adequate: Yes Nausea and vomiting: No Pain level: 1 Mental status: Baseline
== END 2024-07-14 16:25 | disposition home or self-care (01) ==
PROVIDERS: PCP Family Medicine; Visit Provider Orthopaedic Surgery
PROC: (CPT 25607; principal; 2024-07-14 12:15)
DX: S52.551A Other extraarticular fracture of lower end of right radius, initial encounter for closed fracture (principal); N39.0 Urinary tract infection, site not specified; N18.9 Chronic kidney disease, unspecified; I12.9 Hypertensive chronic kidney disease with stage 1 through stage 4 chronic kidney disease, or unspecified chronic kidney disease; Z79.899 Other long term (current) drug therapy; W19.XXXA Unspecified fall, initial encounter
CPT/HCPCS: 25607; 73100; 76000; C1713; J0690; J1100; J2405; J2704; J3010; J7030; J9999

== ENCOUNTER → 2024-07-20 13:48 | Outpatient (BNVA) | payer MEDICARE, SELFPAY | PROVIDERS: PCP Family Medicine; Visit Provider Orthopaedic Surgery | DX: Z48.89 Encounter for other specified surgical aftercare (principal) | CPT/HCPCS: 99024 ==

== ENCOUNTER → 2024-08-26 14:28 | Outpatient (BNVA) | payer MEDICARE, SELFPAY | PROVIDERS: PCP Family Medicine; Visit Provider Orthopaedic Surgery | DX: M25.531 Pain in right wrist (principal) | CPT/HCPCS: 73110; 99024 ==

== ENCOUNTER → 2024-10-07 12:50 | Outpatient (BNVA) | payer MEDICARE, SELFPAY | PROVIDERS: PCP Family Medicine; Visit Provider Orthopaedic Surgery | DX: Z98.890 Other specified postprocedural states (principal) | CPT/HCPCS: 73110; 99024 ==